=== PATIENT | male | born 1950 | race Two or more races ===

== ENCOUNTER 2021-08-13 22:30 | Inpatient (IN) | payer MEDICARE, OTHER ==
[~2021-08-13] VITALS: Ht 172.7 cm; Wt 74.8 kg
--- NOTE | 2021-08-13 22:35 | NUR ---
RT NOTE TRACH PT BROUGHT IN FOR DESATURATION AND HYPOTENSION FROM DETENTION. PLACED ON VENT W GIVEN SETTINGS OF AC 10 500 50% +0 PER FIRE. BILATERAL BS NOTED. MANAGER ACTIVITIES DONE. VENT PLUGGED INTO RED OUTLET W ALARMS SET AND AUDIBLE. Addendum: 08/13/21 at 2323 by BRIAN STEINER RT Amended: Links added.
--- NOTE | 2021-08-13 22:58 | NUR ---
PBIBRAFROM ASSISTED LIVING C/O O2 SAT AT 91%, AND LOW BP .PT IS TRACH TO VENT UNABLE TO COMMUNICATE, PT IS ON MONITOR.
[2021-08-13] MEDS ORDERED: IV NS 0.9% 2,000 ML IV ONE (23:30)
[2021-08-13 23:51] LABS: ABG BASE EXCESS 0.1 mmol/L; ABG PCO2 33.7 mmHg (35.0-45.0); ABG PO2 102.4 mmHg (75.0-100.0); COHb 0.2 % (0.5-1.5); MetHb 0.5 % (0.0-1.5); O2Hb 96.8 % (94.0-97.0); PEEP,BG 0 cm H2O; SITE, ABG Left Radial; VENT MODE, BG AC 10 500 50% +0; VT, ABG 500 mL
[2021-08-14] MEDS ORDERED: VANCOMYCIN 1 GM in IV D5W 250 ML IV ONE (00:30)
[2021-08-14] MEDS ORDERED: CEFEPIME 1 GM in IV D5W 50 ML IV ONE (00:30)
[2021-08-14] MEDS ORDERED: CEFEPIME 1 GM VIAL ONE (01:00)
[2021-08-14] MEDS ORDERED: VANCOMYCIN 1 GM VIAL ONE (01:01)
[2021-08-14 03:24] LABS: HEMATOCRIT 35 % (39-51); HEMOGLOBIN 11.5 g/dL (13.5-17.5); MEAN CORPUSCULAR HGB CONC 33 g/dl (31.0-36.0); MEAN CORPUSCULAR VOLUME 91 fL (80-96); PLATELET COUNT (AUTO) 313 K/uL (150-450); RED BLOOD CELL COUNT(AUTO) 3.87 MIL/uL (4.5-6.0); WHITE BLOOD COUNT (AUTO) 16.9 K/uL (4.3-11.0)
[2021-08-14 03:25] LABS: BASOPHILS % (AUTO) 0.3 % (0.0-2.0); LYMPHOCYTES % (AUTO) 5.8 % (20.0-44.0); MONOCYTES # (AUTO) 1.6 K/uL (0.1-1.30); MONOCYTES % (AUTO) 9.5 % (2.0-12.0); NEUTROPHILS # (AUTO) 14.1 K/uL (1.8-8.9); NEUTROPHILS % (AUTO) 83.4 % (43.0-81.0)
[2021-08-14] MEDS ORDERED: LORAZEPAM INJ 2 MG/ML VIAL ONE (03:48)
[2021-08-14 03:58] LABS: ALANINE AMINOTRANSFERASE 54 U/L (12-78); ALKALINE PHOSPHATASE 63 U/L (46-116); ASPARTATE AMINOTRANSFERASE 38 U/L (15-37); BILIRUBIN,DIRECT 0.2 mg/dL (0.0-0.2); BILIRUBIN,TOTAL 0.4 mg/dL (0.2-1.0); CALCIUM, SERUM 9.3 mg/dL (8.5-10.1); CARBON DIOXIDE 23 mmol/L (21-32); CHLORIDE 98 mmol/L (98-107); CREATININE 1.3 mg/dL (0.6-1.3); GLUCOSE 143 mg/dL (74-106); POTASSIUM 6.1 mmol/L (3.5-5.1); SODIUM SERUM 131 mmol/L (136-145); UREA NITROGEN, BLOOD 34 mg/dL (7-18)
[2021-08-14 03:59] LABS: TOTAL PROTEIN, SERUM 7.6 g/dL (6.4-8.2)
[2021-08-14] MEDS ORDERED: LORAZEPAM INJ 2 MG/ML VIAL IV ONE (04:00)
[2021-08-14 04:21] LABS: BILIRUBIN,URINE NEGATIVE (NEGATIVE); COLOR,URINE YELLOW (YELLOW); LEUKOCYTE ESTERASE ,URINE NEGATIVE (NEGATIVE); NITRITE, URINE NEGATIVE (NEGATIVE); PROTEIN,URINE 1+ mg/dl (NEGATIVE); UGLUCOSE NEGATIVE (NEGATIVE); UROBILINOGEN,URINE 0.2 EU/dL (0.2)
[2021-08-14 04:22] LABS: BACTERIA,URINE None seen /HPF (None Seen); RBC,URINE 21-50 /HPF (0-2); SQUAMOUS EPITHELIAL CELL,UR Few /HPF (None Seen)
--- NOTE | 2021-08-14 05:17 | NUR ---
[facility]SA SWAB COLLECTED AND SENT TO LAB. PATIENT'S BELONGINGS LIST DONE.
[2021-08-14] MEDS ORDERED: SODIUM POLYSTYRENE SULFONATE 15 G/60 ML BOTTLE GT ONE (05:30)
[2021-08-14] MEDS ORDERED: FUROSEMIDE 40 MG/4 ML VIAL IV ONE (05:30)
[2021-08-14] MEDS ORDERED: CALCIUM CHLORIDE 1,000 MG/10 ML DISP.SYRIN IV ONE (05:30)
[2021-08-14] MEDS ORDERED: SODIUM POLYSTYRENE SULFONATE 15 G/60 ML BOTTLE ONE (06:16)
[2021-08-14] MEDS ORDERED: FUROSEMIDE 40 MG/4 ML VIAL ONE (06:16)
[2021-08-14] MEDS ORDERED: CALCIUM CHLORIDE 1,000 MG/10 ML DISP.SYRIN ONE (06:17)
[2021-08-14] MEDS ORDERED: Z GUARD REMEDY 2 OZ OINT TP PRN (07:00)
[2021-08-14] MEDS ORDERED: MAGNESIUM HYDROXIDE 30 ML UDC PO PRN (07:00)
[2021-08-14] MEDS ORDERED: ONDANSETRON HCL/PF 4 MG/2 ML VIAL IVP PRN (07:00)
[2021-08-14] MEDS ORDERED: ZOLPIDEM TARTRATE 5 MG TABLET PO PRN (07:00)
[2021-08-14] MEDS ORDERED: MAG HYDROX/AL HYDROX/SIMETH 30 ML UDC PO PRN (07:00)
[2021-08-14] MEDS ORDERED: PANTOPRAZOLE 40 MG TABLET.DR PO SCH (07:30)
[2021-08-14] MEDS: IV NS 0.9% 1,000 ML IV PRN (07:50)
[2021-08-14] MEDS ORDERED: IV NS 0.9% 500 ML BAG IV ONE (08:00)
--- NOTE | 2021-08-14 08:03 | NUR ---
room 105
--- NOTE | 2021-08-14 10:02 | NUR ---
GAVE BEDSIDE REPORT TO NEMESIO LEPE
--- NOTE | 2021-08-14 10:15 | NUR ---
INNOVATION ANALYST NOTES RECEIVED PT FROM ER. RT ASSISTED WITH TRANSFER AND SETTING UP THE VENTILATOR. PT HAS A ANNIKA MIDLINE FLUSHED, PATENT AND INTACT, G-TUBE AND AN ORDER FOR NS @75ML/HR. AWAITING IV PUMP, NONE AVAILABLE ON THE UNIT. SKIN CHECKED, PT HAS A SCAR ON THE R TEMPORAL/PARIETAL REGION, SCAB ABOVE RIGHT EYEBROW, PERINEAL SWELLING/REDNESS AND SCABBING ON RIGHT FOOT. PT HAS A POOLE DRAINING YELLOW CLEAR URINE, AND BOWEL MOVEMENT X1. PT CLEANED, LINEN CHANGE, SAFETY MEASURES IN PLACE WITH BED IN LOWEST LOCKED POSITION, CALL LIGHT WITHIN REACH.
--- NOTE | 2021-08-14 10:54 | NUR ---
GAS DISTRIBUTION AND EMERGENCY CLERK NOTES PHOTO MASK INSPECTOR NOTIFIED THAT PT IS SINUS TACH 104 WITH BBB NOTIFIED. PT ALSO IS AGITATED, MADE AWARE.
[2021-08-14 12:00] VITALS: BP 129/58
[2021-08-14] MEDS: HYDROCODONE/APAP 5/325MG TABLET PO PRN ×2 (12:03→16:22)
[2021-08-14] MEDS: CEFEPIME 2 GM in IV D5W 100 ML IV SCH ×2 (12:51→22:41)
[2021-08-14] MEDS: VANCOMYCIN HCL 0.75 GM in IV D5W 250 ML IV SCH (13:49)
[2021-08-14 16:00] VITALS: BP 141/73
[2021-08-14 17:13] LABS: CALCIUM, SERUM 8.7 mg/dL (8.5-10.1); CREATININE 1.1 mg/dL (0.6-1.3); POTASSIUM 4.1 mmol/L (3.5-5.1)
[2021-08-14] MEDS: LORAZEPAM INJ 2 MG/ML VIAL IV PRN (18:25)
--- NOTE | 2021-08-14 18:52 | NUR ---
ARMORED CAR GUARD AND DRIVER CLOSING NOTES PT RESTING IN SEMI-LU POSITION WITH HOB ELEVATED, ON VENTILATOR WITH SETTINGS AC 10, TV 500, FIO2 50, AND PEEP 0, O2 SATURATION 100%. PT KEPT CLEAN AND DRY. MEDICATED WITH PRN ATIVAN @ 1830 DUE TO AGITATION/CONFUSION. PT HAS BILATERAL SOFT WRIST RESTRAINTS, SKIN CHECKS PERFORMED Q2H. PT HAS A POOLE WITH 400ML ON SHIFT WITH 3 BOWEL MOVEMENTS. PT HAS NS RUNNING @75ML/HR THROUGH ANNIKA MIDLINE, INFUSING WELL. SAFETY MEASURES IN PLACE WITH BED IN LOWEST LOCKED POSITION, CALL LIGHT WITH IN REACH AND BED ALARM ON. WILL ENDORSE TO NEXT SHIFT FOR CONTINUITY OF CARE.
[2021-08-14 20:00] VITALS: BP 152/64
[2021-08-15] VITALS (42 sets, daily range): BP systolic 63–162; BP diastolic 41–82
[2021-08-15] MEDS: VANCOMYCIN HCL 0.75 GM in IV D5W 250 ML IV SCH ×2 (00:11→12:32)
[2021-08-15] MEDS: LORAZEPAM INJ 2 MG/ML VIAL IV PRN ×4 (01:35→14:42)
[2021-08-15] MEDS: IV NS 0.9% 1,000 ML IV PRN ×3 (05:03→23:16)
[2021-08-15 06:40] LABS: BASOPHILS # (AUTO) 0.1 K/uL (0.0-0.2); BASOPHILS % (AUTO) 0.5 % (0.0-2.0); EOSINOPHILS % (AUTO) 4.3 % (0.0-6.0); HEMATOCRIT 33 % (39-51); HEMOGLOBIN 10.9 g/dL (13.5-17.5); LYMPHOCYTES # (AUTO) 0.7 K/uL (0.8-4.8); LYMPHOCYTES % (AUTO) 6.1 % (20.0-44.0); MEAN CORPUSCULAR HGB CONC 33 g/dl (31.0-36.0); MEAN CORPUSCULAR VOLUME 91 fL (80-96); MONOCYTES % (AUTO) 9.2 % (2.0-12.0); NEUTROPHILS # (AUTO) 8.9 K/uL (1.8-8.9); NEUTROPHILS % (AUTO) 79.9 % (43.0-81.0); PLATELET COUNT (AUTO) 227 K/uL (150-450); RED BLOOD CELL COUNT(AUTO) 3.62 MIL/uL (4.5-6.0); WHITE BLOOD COUNT (AUTO) 11.1 K/uL (4.3-11.0)
--- NOTE | 2021-08-15 07:00 | NUR ---
RN CLOSING NOTES, PT ON VENTILATOR WITH SETTINGS tolerating setting well, O2 SATURATION 98-100%,NO SIGNIFICANT CHANGE IN CONDITION DURING NIGHT, ON BILATERAL SOFT WRIST RESTRAINTS, NO CIRCULATION COMPROMISED, ATIVAN GIVEN ONCE DURING NIGHT FOR AGITATION, ALL SAFETY MEASURES IN PLACE WITH BED IN LOWEST LOCKED POSITION, CALL LIGHT WITH IN REACH AND BED ALARM ON. WILL ENDORSE CONTINUITY OF CARE TO ONCOMING NURSE..
[2021-08-15 07:17] LABS: CALCIUM, SERUM 8.9 mg/dL (8.5-10.1); CREATININE 0.7 mg/dL (0.6-1.3); MAGNESIUM 1.8 mg/dL (1.8-2.4); PHOSPHORUS 3.7 mg/dL (2.5-4.9); POTASSIUM 3.7 mmol/L (3.5-5.1)
[2021-08-15] MEDS: ACETAMINOPHEN 325 MG TABLET PO PRN ×3 (07:39→18:15)
[2021-08-15] MEDS: PANTOPRAZOLE 40 MG/PACK PACK GT SCH ×3 (08:20→17:56)
[2021-08-15] MEDS ORDERED: ALBU2.5V13 IH (08:21)
[2021-08-15] MEDS ORDERED: ONDA4TAB5 GT (08:21)
[2021-08-15] MEDS ORDERED: INSU100V39 SQ (08:21)
[2021-08-15] MEDS ORDERED: ACET-868 GT (08:21)
[2021-08-15] MEDS ORDERED: CARV12.52 GT (08:21)
[2021-08-15] MEDS ORDERED: IPRA0.2S9 IH (08:21)
[2021-08-15] MEDS ORDERED: DOCU50LI GT (08:21)
[2021-08-15] MEDS ORDERED: MULT-24 GT (08:21)
[2021-08-15] MEDS ORDERED: PANT40SU2 GT (08:21)
[2021-08-15] MEDS ORDERED: LISI20TA30 GT (08:21)
[2021-08-15] MEDS ORDERED: FURO-145 GT (08:21)
[2021-08-15] MEDS ORDERED: ATOR40TA GT (08:21)
[2021-08-15] MEDS ORDERED: RIVA10TA GT (08:21)
[2021-08-15] MEDS ORDERED: ASCO-352 GT (08:21)
[2021-08-15] MEDS ORDERED: NUT.237L30 GT (08:21)
[2021-08-15] MEDS ORDERED: LACT1CAP61 GT (08:21)
[2021-08-15] MEDS ORDERED: DOXA2TAB2 GT (08:21)
[2021-08-15] MEDS ORDERED: LACT10SO3 GT (08:21)
[2021-08-15] MEDS ORDERED: GLUC1KIT IM (08:21)
[2021-08-15] MEDS ORDERED: LABE300T2 GT (08:21)
--- NOTE | 2021-08-15 08:30 | NUR ---
DEDICATED DRIVER OPENING NOTE RECEIVED REPORT FROM PM NURSE.PATIENT IN BED SINUS TACHY 120-140'S.ELEVATED TEMP. MADE AWARE.ON COOLING MEASURES.WILL CONTINUE TO MONITOR.SAFETY NAD ASPIRATION MEASURES IN PLACE.ON RESTRAINS.NON VERBAL.WILL CONTINUE TO MONITOR.
--- NOTE | 2021-08-15 09:32 | NUR ---
PATIENT HR 160'S .RR IS 40'S . MADE AWARE.GOT NEW ORDER FOR ATIVAN 2MG Q4H PRN.WILL CONTINUE TO MONITOR.TEMP 100.4
[2021-08-15] MEDS: CARVEDILOL 12.5 MG TABLET GT SCH ×2 (11:12→23:29)
[2021-08-15] MEDS: CEFEPIME 2 GM in IV D5W 100 ML IV SCH (11:29)
--- NOTE | 2021-08-15 11:42 | NUR ---
protonix did not administered.given in am.
[2021-08-15] MEDS: IPRATROPIUM NEB FS 0.5 MG/2.5 ML AMPUL.NEB IH SCH ×3 (12:26→20:21)
[2021-08-15] MEDS: ALBUTEROL FS 2.5 MG/0.5 ML VIAL.NEB IH SCH ×3 (12:27→20:21)
[2021-08-15] MEDS ORDERED: IBUPROFEN SUSP 100 MG/5 ML UDC PO PRN (12:30)
--- NOTE | 2021-08-15 12:30 | NUR ---
PATIENT NOTED WITH TEMP RECTAL 106.4F. NOTIFIED,GOT NEW ORDERS.1230 TEMP 105.5.STILL TACHY.MADE AWARE THAT PATIENT IS TOO UNSTABLE TO TRANSFER FOR CT SCAN ORDERED BY ID.PATIENT IS STILL TACHY.STAT EKG DONE.REPORTED TO .GOT NEW ORDER TO TRANSFER TO ICU.
[2021-08-15] MEDS: LACTULOSE 10 G/15 ML UDC (PYXIS) GT SCH ×2 (12:34→21:00)
--- NOTE | 2021-08-15 13:00 | NUR ---
PATIENT TRANSFERRED TO ICU FOR CONTINUE MONITORING,HR IN 120-130'S.TEMP 102.9.IV FLUSHING.POOLE CATH DRAINING CLEAR YELLOW URINE.HYGIENE CARE DONE. REPORT GIVEN TO ÁNGELA LEPE.
--- NOTE | 2021-08-15 13:00 | NUR ---
Patient received from room 105, beside report given. patient tachycardic of 120's, rectal temp of 102.8, 88/50 bp. Patient with cooling blanket and cooling measures. Patient will be monitored. Addendum: 08/15/21 at 1949 by NAOMIE ANGULO RN Patient did not follow commands and did not open eyes.
--- NOTE | 2021-08-15 13:40 | NUR ---
Patient noted with bp of 86/56 manual, pulse 114, temp trending down to 101.4 from 102.8 when admitted to ICU.Received orders for 500 ML OF N/S BOLUS.
--- NOTE | 2021-08-15 13:41 | NUR ---
PER MD IF PATIENT'S BP BELOW 90 AFTER BOLUS TO START LEVO DRIP.ORDERS NOTED FOR STANDING ORDERS.
--- NOTE | 2021-08-15 13:50 | NUR ---
NORMAL SALINE BOLUS STARTED
[2021-08-15] MEDS ORDERED: NOREPINEPHRINE 8 MG in IV NS 0.9% 242 ML IV PRN (15:00)
[2021-08-15] MEDS: DOCUSATE SODIUM LIQ 100 MG/10 ML UDC GT SCH (15:37)
--- NOTE | 2021-08-15 15:55 | NUR ---
MD DONALDSON MADE AWARE REGARDING PATIENT BEING STARTED ON LEVO DUE TO MANUAL BP OF 85/40 AND PATIENT'S CORE TEMP OF 103 DEGREE BUT UNABLE TO GIVE TYLENOL BEING Q6H AND MOTRIN BEING Q8 AND TOO SOON TO GIVE. PER MD TO INFORM INFECTIOUS DISEASE. ID TEAM NOTIFIED AND PER ID TEAM TO CHANGE CEFEPIME TO MERREM 500 MG Q8H AND TO REPEAT BLOOD CULTURES AND TO ADD MYCAMIN 100 MG IV DAILY. NEW ORDERS FOR CT OF HEAD, ABDOMEN AND PLEVIS WITHOUT CONTRAST. OUTREACH LIBRARIAN MADE AWARE THAT PATIENT'S VITALS NOT STABLE AND RECENTLY STARTED ON LEVO, PER OUTREACH LIBRARIAN TO WAIT UNTIL PATIENT STABLE FOR CT. ALL ORDERS NOTED AND CARRIED OUT.
[2021-08-15] MEDS ORDERED: RIVAROXABAN 10 MG TABLET GT SCH (17:00)
[2021-08-15] MEDS: MICAFUNGIN SODIUM 100 MG in IV NS 0.9% 100 ML IV SCH (17:35)
--- NOTE | 2021-08-15 18:00 | NUR ---
mycamin given 1st dose
--- NOTE | 2021-08-15 18:58 | NUR ---
blood cultures drawn x 2
--- NOTE | 2021-08-15 19:37 | NUR ---
HAND METHOD LASTING MACHINE OPERATOR CLOSING NOTES Patient is on mechanical vent setting, 02 sat of 99 %. Patient currently trending down with temp of 100 degrees real time. Non medical nursing interventions provided such as cooling measures. ANNIKA midline running NS at 100 cc/hour and levo drip running at 0.06 mcg/kg/min.HOB kept elevated. Patient noted wiht urine output of 400 cc throughout morning shift and noted with one large loose bm with credit underwriter. Endorsed to next shift for CT of abdomen and pelvis along with ct of head without contrast if patient stabilizes. Endorsed to next shift for COY.
[2021-08-15] MEDS: MEROPENEM 500 MG in IV NS 0.9% 50 ML IV SCH (23:14)
--- NOTE | 2021-08-15 23:25 | NUR ---
BUILDING STONECUTTER:VERIFIED WITH DR. CLEMONS IF BP MEDS ARE NEEDED TO BE HELD AT THIS TIME PT IS STILL ON LEVOPHED DRIP. WT ORDER TO HOLD BP MEDS FOR TONIGHT. NOTED AND CARRIED OUT. PT CONTINUES TO HAVE FEVER. ST ON FURNITURE SALES CONSULTANT. WILL ADMINISTER ACETAMINOPHEN ONCE DUE. CONTINUE ON COOLING MEASURES. TOLERATING VENT SETTINGS ORDERED. BILAT. SOFT WRIST RESTRAINTS IN PLACE FOR EPISODES OF TRYING TO PULL TUBINGS. SKIN AND CIRCULATION WNL. CONTINUE ON NS AT 100ML/HR. NO S/S OF IV INFILTRATION. POOLE CATHETER INTACT DRAINING YELLOW URINE TO GRAVITY. HOB ABOVE 35 DEGREES. BED IN LOWEST POSITION AND LOCKED. BED ALARM ON. SIDE RAILS UP X2. CALL LIGHT WITHIN REACH. WILL CONTINUE TO MONITOR.
[2021-08-15] MEDS: LISINOPRIL (20MG) 20 MG TABLET GT SCH (23:29)
[2021-08-15] MEDS: DOXAZOSIN MESYLATE (1 MG) 1 MG TABLET GT SCH (23:30)
[2021-08-16] VITALS (47 sets, daily range): BP systolic 89–157; BP diastolic 51–91
[2021-08-16] MEDS: ALBUTEROL FS 2.5 MG/0.5 ML VIAL.NEB IH SCH ×7 (00:05→23:38)
[2021-08-16] MEDS: IPRATROPIUM NEB FS 0.5 MG/2.5 ML AMPUL.NEB IH SCH ×7 (00:05→23:38)
[2021-08-16] MEDS: VANCOMYCIN HCL 0.75 GM in IV D5W 250 ML IV SCH ×3 (00:19→23:50)
[2021-08-16] MEDS: ACETAMINOPHEN 325 MG TABLET PO PRN ×3 (00:24→18:03)
[2021-08-16] MEDS: LACTULOSE 10 G/15 ML UDC (PYXIS) GT SCH ×2 (05:00→11:31)
[2021-08-16 05:03] LABS: CALCIUM, SERUM 8.3 mg/dL (8.5-10.1); CREATININE 1.1 mg/dL (0.6-1.3); POTASSIUM 3.7 mmol/L (3.5-5.1)
--- NOTE | 2021-08-16 06:30 | NUR ---
OFFICE MACHINE INSPECTOR: PT IS MORE ALERT AND AWAKE AT THIS TIME. ABLE TO OPEN EYES AND FOLLOW SIMPLE COMMANDS. STILL HAVING DIARRHEA. GOOD PERICARE RENDERED. STILL OFF VASOPRESSORS. SAFETY PRECAUTION NOTED AT ALL TIMES.
[2021-08-16] MEDS: MEROPENEM 500 MG in IV NS 0.9% 50 ML IV SCH ×3 (06:49→21:01)
--- NOTE | 2021-08-16 07:00 | NUR ---
WARP CHANGER: ENDORSED TO DAY SHIFT RN FOR PENDING CT HEAD, ABDOMEN AND PELVIS.
--- NOTE | 2021-08-16 07:25 | NUR ---
ICU/RN PT IS TRACH ON THE VENT ,AC MODE.SAT O2-100%,V/S STABLE,AFEBRILE.OFF LEVOPHED DRIP.G-TUBE CLAMPED.PT IS NPO WAITING FOR CT OF THE HEAD AND ABDOMEN.F/C DRAINING WITH YELLOW URINE.BILATERAL SOFT WRIST RESTRAINS ON .PT IS AGITATED.NOT FOLLOWS COMMAND.RIGHT FOOT COVERED WITH DRESSING.PT HAS LIQUID STOOL. AM CARE PROVIDED.LABS REVIEW. NOTIFIED.
--- NOTE | 2021-08-16 07:43 | NUR ---
WOUND CARE CONSULT: PT PRESENTS WITH SCARRING/ESCHAR TO RT SIDE OF HEAD, SCAR ABOVE RT EYEBROW, SACRAL SCARRING WITH INTACT DEEP TISSUE INJURY AND SWELLING WITH ESCHAR TO RT FOOT, ALL PRESENT ON ADMISSION. SURGICAL AND DPM CONSULTS TO BE CALLED TO DR ARACELI MORGAN AND DR MIR THIS AM. RECOMMENDATIONS MADE FOR SKIN PROTECTION. DISCUSSED WITH NURSING STAFF. PT NOTED TO BE MOVING HIS LEGS IN BED. IN AGREEMENT WITH PLAN OF CARE. Addendum: 08/16/21 at [facility] by BRAD TOTH WNDNU Amended: Links added. Addendum: 08/16/21 at [facility] by BRAD TOTH WNDNU PT IS ON [facility] BED.
[2021-08-16 08:20] LABS: ALBUMIN 2.3 g/dL (3.4-5.0); BILIRUBIN,TOTAL 0.5 mg/dL (0.2-1.0); CALCIUM, SERUM 8.1 mg/dL (8.5-10.1); CREATININE 1.2 mg/dL (0.6-1.3); MAGNESIUM 1.7 mg/dL (1.8-2.4); PHOSPHORUS 3.5 mg/dL (2.5-4.9); POTASSIUM 3.9 mmol/L (3.5-5.1); TOTAL PROTEIN, SERUM 6.3 g/dL (6.4-8.2)
[2021-08-16] MEDS ORDERED: IV NS 0.9% 1,000 ML IV ONE (08:30)
[2021-08-16] MEDS: LORAZEPAM INJ 2 MG/ML VIAL IV PRN ×2 (08:34→17:10)
[2021-08-16] MEDS: ASCORBIC ACID 500 MG TABLET GT SCH (08:35)
[2021-08-16] MEDS: MULTIVITAMINS,THERAGRAN 1 UDTAB TABLET GT SCH (08:36)
[2021-08-16] MEDS: CARVEDILOL 12.5 MG TABLET GT SCH ×2 (08:36→21:04)
[2021-08-16] MEDS: LISINOPRIL (20MG) 20 MG TABLET GT SCH ×2 (08:36→21:03)
[2021-08-16] MEDS: PANTOPRAZOLE 40 MG/PACK PACK GT SCH ×3 (08:36→17:50)
[2021-08-16] MEDS: DOCUSATE SODIUM LIQ 100 MG/10 ML UDC GT SCH ×2 (08:37→17:00)
--- NOTE | 2021-08-16 09:05 | NUR ---
ICU/RN DUE MEDS ARE GIVEN ORDERED.1 L NS BOLUS GIVEN ORDERED.
--- NOTE | 2021-08-16 11:00 | NUR ---
ICU/RN PT IS BACK FROM CT SCAN.
[2021-08-16] MEDS: IV NS 0.9% 1,000 ML IV PRN ×2 (11:09→20:47)
[2021-08-16] MEDS: Magnesium 1GM/D5W 100ML PREMIX 100 ML IV SCH ×2 (11:13→11:52)
[2021-08-16] MEDS ORDERED: DEXTROSE 50%-WATER 50 ML DISP.SYRIN IV PRN (12:00)
[2021-08-16] MEDS: BLOOD SUGAR DIAGNOSTIC 1 EACH STRIP IN SCH ×3 (12:04→23:50)
--- NOTE | 2021-08-16 14:00 | NUR ---
ICU/RN CT OF THE HEAD SHOWING HEAD BLEEDING.MD NOTIFIED.FAMILY NOTIFIED.NEW ORDERS RECEIVED.
[2021-08-16] MEDS: METRONIDAZOLE 500 MG TABLET PO SCH ×2 (14:22→21:03)
--- NOTE | 2021-08-16 16:00 | NUR ---
ICU/RN PT IS BACK FROM SECOND CT OF THE HEAD WAITING FOR RESULT.PM CARE PROVIDED. ORDERED.PT HAS MULTIPLY LIQUID STOOLS.MD NOTIFIED.STOOL FOR C-DIFF SEND TO THE LAB.RECTAL TUBE INSERTED.WOUND DRESSING DONE ORDERED.SUCTION PROVIDED,G-TUBE FEEDING STARTED ORDERED.
[2021-08-16] MEDS: MICAFUNGIN SODIUM 100 MG in IV NS 0.9% 100 ML IV SCH (17:50)
--- NOTE | 2021-08-16 18:00 | NUR ---
ICU/RN DUE MEDS ARE GIVEN ORDERED.ALICIA CARE DONE .CT OF THE HEAD RESULT STILL PENDING.
[2021-08-16] MEDS: GLUCERNA 1.2 1,000 ML BOTTLE GT PRN (18:03)
--- NOTE | 2021-08-16 19:30 | NUR ---
ICU NOTES Received patient awake non verbal non interactive confused and restless.Patient with trach to mechanical vent with prescribed settings well tolerated spo2 98%- 100%.No acute respiratory distress noted.SR/ST 90'S-100'S.Normotensive.GT feeding in progress.Aspiration maintained with HOB elevated.No residual noted. FC to gravity.Incontinent of liquid stools patient pulled out Flexi-seal.Kept clean and dry.Flexi seal reapplied.IVF infusing via ANNIKA ML site intact.Turned and repositioned. Continue monitoring.
[2021-08-16] MEDS: DOXAZOSIN MESYLATE (1 MG) 1 MG TABLET GT SCH (21:05)
[2021-08-17] VITALS (20 sets, daily range): BP systolic 136–178; BP diastolic 61–100
[2021-08-17] MEDS ORDERED: VANCOMYCIN 0.75 GM in IV D5W 250 ML IV SCH
[2021-08-17] MEDS: ALBUTEROL FS 2.5 MG/0.5 ML VIAL.NEB IH SCH ×6 (03:47→23:19)
[2021-08-17] MEDS: IPRATROPIUM NEB FS 0.5 MG/2.5 ML AMPUL.NEB IH SCH ×6 (03:47→23:19)
[2021-08-17 04:33] LABS: BASOPHILS # (AUTO) 0.1 K/uL (0.0-0.2); BASOPHILS % (AUTO) 0.9 % (0.0-2.0); EOSINOPHILS % (AUTO) 1.9 % (0.0-6.0); HEMATOCRIT 27 % (39-51); HEMOGLOBIN 9.2 g/dL (13.5-17.5); LYMPHOCYTES # (AUTO) 0.7 K/uL (0.8-4.8); LYMPHOCYTES % (AUTO) 10.5 % (20.0-44.0); MEAN CORPUSCULAR HGB CONC 34 g/dl (31.0-36.0); MEAN CORPUSCULAR VOLUME 100 fL (80-96); MONOCYTES % (AUTO) 15.2 % (2.0-12.0); NEUTROPHILS # (AUTO) 4.8 K/uL (1.8-8.9); NEUTROPHILS % (AUTO) 71.5 % (43.0-81.0); PLATELET COUNT (AUTO) 209 K/uL (150-450); RED BLOOD CELL COUNT(AUTO) 2.72 MIL/uL (4.5-6.0); WHITE BLOOD COUNT (AUTO) 6.7 K/uL (4.3-11.0)
[2021-08-17] MEDS: METRONIDAZOLE 500 MG TABLET PO SCH ×3 (04:45→21:02)
[2021-08-17] MEDS: MEROPENEM 500 MG in IV NS 0.9% 50 ML IV SCH ×3 (04:46→20:37)
[2021-08-17 04:47] LABS: CALCIUM, SERUM 7.5 mg/dL (8.5-10.1); CREATININE 0.7 mg/dL (0.6-1.3); PHOSPHORUS 2.6 mg/dL (2.5-4.9); POTASSIUM 3.7 mmol/L (3.5-5.1)
--- NOTE | 2021-08-17 06:00 | NUR ---
ICU NOTES. Patient resting.VS remains stable.Tolerating vent settings.Tolerating GT feeding increase rate rate at intervals now infusing 40mls/hr with goal rate of 65 mls/hr.No residual noted.HOB elevated.AM care done.Turned and repositioned.Blood sugar monitored its wnl.Due medications administered.Kept comfortable and safe.No acute distress noted all throughout the shift.
[2021-08-17] MEDS: BLOOD SUGAR DIAGNOSTIC 1 EACH STRIP IN SCH ×3 (06:04→17:52)
[2021-08-17] MEDS: IV NS 0.9% 1,000 ML IV PRN (06:07)
--- NOTE | 2021-08-17 07:25 | NUR ---
RN NOTES PT FOUND SLEEPING SEMI LU'S POSITION DISPLAYING NO S/S OF DISTRESS, FLACC = 0 AND BILATERAL RISE AND FALL OF THE CHEST OBSERVED. TRACH DRESSING IS CLEAN AND DEVOID OF FLUID. RESIDUAL IS APPROXIMATELY 35 ML. BILATERAL SOFT WRIST RESTRAINTS APPLIED, PULSES PALPATED AND CAP REFILL < 3 SECONDS BILATERALLY. POOLE CATH BELOW PATIENT DRAINING BY GRAVITY. RECTAL TUBE BELOW PATIENT DRAINING BY GRAVITY. L UA MIDLINE PATIENT AND INTACT. VSS, RN WILL MONITOR AND TREAT THROUGHOUT SHIFT. SAFETY MEASURES IN PLACE, BED LOCKED AND IN LOWEST POSITION, SIDE RAILS UPX2, CALL LIGHT WITHIN REACH, BED ALARM ARMED.
[2021-08-17] MEDS: DOCUSATE SODIUM LIQ 100 MG/10 ML UDC GT SCH ×2 (08:49→17:00)
[2021-08-17] MEDS: ASCORBIC ACID 500 MG TABLET GT SCH (08:49)
[2021-08-17] MEDS: CARVEDILOL 12.5 MG TABLET GT SCH ×2 (08:49→21:02)
[2021-08-17] MEDS: MULTIVITAMINS,THERAGRAN 1 UDTAB TABLET GT SCH (08:49)
[2021-08-17] MEDS: PANTOPRAZOLE 40 MG/PACK PACK GT SCH ×2 (08:50→17:52)
[2021-08-17] MEDS: LISINOPRIL (20MG) 20 MG TABLET GT SCH ×2 (08:50→21:02)
[2021-08-17] MEDS: RIVAROXABAN 10 MG TABLET GT SCH (08:55)
[2021-08-17 08:58] LABS: IRON, SERUM 24 ug/dl (50-175); TOTAL IRON BINDING CAPACITY 61 ug/dl (250-450)
[2021-08-17 09:12] LABS: FERRITIN 805 ng/mL (8-388)
[2021-08-17] MEDS: VANCOMYCIN HCL 0.75 GM in IV D5W 250 ML IV SCH ×2 (12:00→23:56)
[2021-08-17] MEDS: IV 1/2NS 1000 ML 1,000 ML IV SCH ×2 (12:40→23:11)
--- NOTE | 2021-08-17 16:45 | NUR ---
Verification of admission letter: Per pt.'s , Ruth's request, JOSÉ completed verification of admission letter for time off work purposes. JOSÉ placed it in the pt.'s chart. Ruth stated she will pick it up tomorrow. Noted. Addendum: 08/17/21 at 1640 by OSCAR KUMAR Ruth: [phone]
[2021-08-17] MEDS: MICAFUNGIN SODIUM 100 MG in IV NS 0.9% 100 ML IV SCH (17:52)
--- NOTE | 2021-08-17 19:30 | NUR ---
RN NOTES RN TRAVELED TO [facility] AND GAVE REPORT IN PERSON TO [facility] RN. PT IS CURRENTLY SEMI FOWLERS, A&OX2-3, FLACC = 0 AND BILATERAL RISE AND FALL OBSERVED ON VENT TRACH. PT CONTINUES TO BE RESTRAINED, BILATERAL PULSES PALPATED AND CAP REFILL < 3 SECONDS. R UA MIDLINE IS INTACT, DRESSING CHANGED. POOLE CATH BELOW PATIENT DRAINING BY GRAVITY. PT PULLED OUT RECTAL TUBE AND DESTROYED ABILITY TO RE-INSERT. SBAR AND REPORT GIVEN TO VARNISH MELTER HELPER RN. PT WILL BE TRANSPORTED [facility].
--- NOTE | 2021-08-17 19:45 | NUR ---
AGRICULTURAL EXTENSION EDUCATOR NOTES RECEIVED TRANSFER FROM ICU BY BED THIS 71 YO MALE.CONFUSED.ON TRACH TO VENT PORTEX#9,AC-10,TV-500,FIO2-40%,NO PEEP,O2 SAT 99%. GT FEEDING OF GLUCERNA RE STARTED AT 60ML/HR RATE,GOAL TILL 65 IF TOLERATED.HOB ELEVATED FOR ASPIRATION PRECAUTION.WITH ANNIKA MIDLINE,NS AT 100ML/HR RATE IN PROGRESS.POOLE CATH IN PLACE DRAINING YELLOWISH OUTPUT.RIGHT FOOT WOUND WITH DRESSING INTACT AND DRY.ON BILATERAL SOFT WRIST RESTRAINT,TRYING TO PULL OUT TUBINGS AND TRACH,PER REPOT HES' RECTAL TUBE BUT HE WAS ABLE TO PULL IT OUT 3 TIMES USING HIS FOOT.ISOLATION PRECAUTION FOR C-DIFF POSITIVE.WILL CONTINUE TO MONITOR STATUS.
--- NOTE | 2021-08-17 20:05 | NUR ---
PT TRANSFERRED TO 310.
[2021-08-17] MEDS: GLUCERNA 1.2 1,000 ML BOTTLE GT PRN (20:43)
--- NOTE | 2021-08-17 21:00 | NUR ---
CIRCLE SHEAR OPERATOR NOTES ALL DUE MEDS ADMINISTERED SCHEDULED.
[2021-08-17] MEDS: DOXAZOSIN MESYLATE (1 MG) 1 MG TABLET GT SCH (22:46)
--- NOTE | 2021-08-17 23:30 | NUR ---
LEATHER DRIER NOTES REPORTED BY WEI MILLS,PATIENT PULLED HIS POOLE USING HIS FOOT.NOT SLIGHT BLEEDING ON PENILE AREA.
[2021-08-18] VITALS (8 sets, daily range): BP systolic 129–164; BP diastolic 64–93
[2021-08-18] MEDS: BLOOD SUGAR DIAGNOSTIC 1 EACH STRIP IN SCH ×4 (00:03→17:11)
--- NOTE | 2021-08-18 00:08 | NUR ---
PEST LOCATOR NOTES SR-88 ON TELE MONITOR
--- NOTE | 2021-08-18 00:08 | NUR ---
SHANK TURNER NOTES ACCU-CHECK BLOOD SUGAR 104,NO INSULIN COVERAGE,GT FEEDING IN PROGRESS.
[2021-08-18] MEDS: LORAZEPAM INJ 2 MG/ML VIAL IV PRN ×3 (00:32→17:27)
--- NOTE | 2021-08-18 00:32 | NUR ---
LITURGICAL MUSIC DIRECTOR NOTES VERY RESTLESS,ATIVAN 2MG IV GIVEN ORDERED FOR AGITATION
[2021-08-18] MEDS: ALBUTEROL FS 2.5 MG/0.5 ML VIAL.NEB IH SCH ×6 (03:30→23:06)
[2021-08-18] MEDS: IPRATROPIUM NEB FS 0.5 MG/2.5 ML AMPUL.NEB IH SCH ×6 (03:30→23:07)
[2021-08-18] MEDS: MEROPENEM 500 MG in IV NS 0.9% 50 ML IV SCH (04:52)
[2021-08-18] MEDS: METRONIDAZOLE 500 MG TABLET PO SCH ×3 (05:21→21:05)
--- NOTE | 2021-08-18 05:30 | NUR ---
VEGETABLE PACKER NOTES ACCU-CHECK BLOOD SUGAR CHECK 101,NO INSULIN COVERAGE.
--- NOTE | 2021-08-18 06:52 | NUR ---
PNEUMATIC SYSTEM CONVEYOR OPERATOR NOTES RESTING COMFORTABLY ON BED,HARJIT AND QUIET,ATIVAN IV EFFECTIVE,POOLE CATH FR # 16 INSERTED,PROCEDURE TOLERATED WELL.RECTAL TUBE STILL OUT.WILL ENDIORSE TO DAY NURSE FOR COY
[2021-08-18 07:03] LABS: BASOPHILS # (AUTO) 0.1 K/uL (0.0-0.2); BASOPHILS % (AUTO) 0.6 % (0.0-2.0); EOSINOPHILS % (AUTO) 4.5 % (0.0-6.0); HEMATOCRIT 27 % (39-51); HEMOGLOBIN 9.2 g/dL (13.5-17.5); LYMPHOCYTES # (AUTO) 0.9 K/uL (0.8-4.8); MEAN CORPUSCULAR HGB CONC 35 g/dl (31.0-36.0); MEAN CORPUSCULAR VOLUME 90 fL (80-96); MONOCYTES # (AUTO) 1.1 K/uL (0.1-1.30); MONOCYTES % (AUTO) 12.1 % (2.0-12.0); NEUTROPHILS # (AUTO) 6.8 K/uL (1.8-8.9); NEUTROPHILS % (AUTO) 72.8 % (43.0-81.0); PLATELET COUNT (AUTO) 170 K/uL (150-450); RED BLOOD CELL COUNT(AUTO) 2.97 MIL/uL (4.5-6.0); WHITE BLOOD COUNT (AUTO) 9.4 K/uL (4.3-11.0)
--- NOTE | 2021-08-18 07:22 | NUR ---
FORENSIC PSYCHIATRIST OPENING NOTE PATIENT RECEIVED ASLEEP IN BED. PATIENT IS BREATHING W/O S/S OF DISTRESS; PORTEX #9, AC 10, TV 600, FiO2 40; POOLE URINE SLIGHTLY DUSTY; SKIN IS CLEAN AND INTACT. HE HAS A ANNIKA MIDLINE 1/2 NS @100ML/HR PATENT. PATIENT WILL BE MONITORED THROUGHOUT SHIFT FOR ALL NEEDS.
[2021-08-18 07:38] LABS: CREATININE 0.8 mg/dL (0.6-1.3); MAGNESIUM 1.8 mg/dL (1.8-2.4); PHOSPHORUS 2.8 mg/dL (2.5-4.9)
[2021-08-18 07:54] LABS: POTASSIUM 2.7 mmol/L (3.5-5.1)
--- NOTE | 2021-08-18 07:59 | NUR ---
HOSPITAL ATTENDANT NOTE RECEIVED CALL FROM LAB RE: CRITICAL LAB VALUE K 2.7; NOTIFIED AND RECEIVED ORDER FOR K 40MEQ IV.
[2021-08-18] MEDS: MULTIVITAMINS,THERAGRAN 1 UDTAB TABLET GT SCH (08:39)
[2021-08-18] MEDS: DOCUSATE SODIUM LIQ 100 MG/10 ML UDC GT SCH ×2 (08:39→17:00)
[2021-08-18] MEDS: CARVEDILOL 12.5 MG TABLET GT SCH ×2 (08:40→21:05)
[2021-08-18] MEDS: POTASSIUM CL. PREMIX PERIPHER. 50 ML IV SCH ×6 (08:41→20:25)
[2021-08-18] MEDS: LISINOPRIL (20MG) 20 MG TABLET GT SCH ×2 (08:41→21:05)
[2021-08-18] MEDS: PANTOPRAZOLE 40 MG/PACK PACK GT SCH ×2 (08:41→17:10)
[2021-08-18] MEDS: ASCORBIC ACID 500 MG TABLET GT SCH (08:41)
[2021-08-18] MEDS: IV 1/2NS 1000 ML 1,000 ML IV SCH (08:45)
[2021-08-18] MEDS: PROSOURCE / PROSTAT (PYXIS) 30 ML UDC GT SCH ×3 (10:50→17:10)
--- NOTE | 2021-08-18 11:09 | NUR ---
ELECTRICAL APPRENTICE NURSE NOTE RECTAL TUBING D/C'd PER MD; GAVE ORDER TO RECHECK K AFTER 40MEQ GIVEN.
[2021-08-18] MEDS: INSULIN REGULAR, HUMAN 100 UNIT/ML 3 ML VIAL SQ PRN ×2 (12:08→17:29)
[2021-08-18] MEDS: ACETAMINOPHEN 325 MG TABLET PO PRN (12:41)
--- NOTE | 2021-08-18 12:41 | NUR ---
BIOPHYSICS TEACHER NOTE PATIENT NOTED WITH FEVER UPON ASSESSMENT IN ROOM; COOLING MEASURES FOLLOWED; TYLENOL GIVEN PER eMAR. PATIENT IS ALSO SHOWING S/S OF AGITATION AND ANXIETY. ATIVAN, PER PRN ORDER, WAS GIVEN. WILL FOLLOW-UP AND CONTINUE TO MONITOR. VITALS WNL.
[2021-08-18] MEDS: VANCOMYCIN HCL 0.75 GM in IV D5W 250 ML IV SCH (13:13)
[2021-08-18] MEDS: RIVAROXABAN 10 MG TABLET GT SCH (17:10)
--- NOTE | 2021-08-18 17:27 | NUR ---
ROBERTH NOTE ATIVAN NOT SCANNED, MEDICATION GIVEN @ 1727. WILL CONTINUE TO MONITOR Addendum: 08/18/21 at 1728 by SANG PAYNE RN BAR CODE UNSCANNABLE TRIED X 2 TIMES
[2021-08-18] MEDS ORDERED: POTASSIUM PHOSPHATE MM 5 MMOL in IV NS 0.9% 100 ML IV SCH (18:00)
[2021-08-18] MEDS: VANCOMYCIN HCL 125 MG/2.5 ML ORAL.SUSP PO SCH (18:44)
[2021-08-18] MEDS: IV 1/2NS 1000 ML 1,000 ML IV PRN (18:45)
--- NOTE | 2021-08-18 18:51 | NUR ---
KNIFE CHANGER CLOSING NOTE PATIENT ASLEEP IN BED. NO S/S OF DISTRESS. NO PAIN NOTED. PATIENT IS STABLE. SAFETY MEASURES IN PLACE: BED AT LOWEST POSITION, RAILS UP X2, BED LOCKED IN PLACE, CALL LIGHT WITHIN REACH. WILL ENDORSE TO DELI MANAGER FOR COY.
--- NOTE | 2021-08-18 19:45 | NUR ---
ACQUISITION PROFESSIONAL NOTES SR-82,RECEIVED ON BED,CALM AND QUIET THIS TIME,ON TRACH TO VENT,SETTINGS TOLERATED WELL.IVF 1/2 NS AT 100ML/HOUR IN PROGRESS,INFUSING LEFT ARM MIDLINE VIA IV PUMP.POOLE CATH PLACE DRAINS YELLOWISH OUTPUT.GT FEEDING ON GLUCERNA IN PROGRESS AT 62ML/HR RATE,ON BILATERAL SOFT WRIST RESTRAINTS FOR SAFETY,ISOLATION FOR C-DIFF POSITIVE.SUCTION MUCUS NEEDED.WILL CONTINUE TO MONITOR STATUS.
--- NOTE | 2021-08-18 20:21 | NUR ---
RT NOTE [facility] Pt shows no signs of resp distress or sob. Trach is patent and secured. Pt sx'd for thick mod amt of pale yellow secretions. Alarms are set and audible. ambu bag and emergency spare trach at bedside. Vent plugged into red outlet. Will continue to monitor closely. Addendum: 08/18/21 at 2020 by NABOR TALLEY RT Amended: Links added.
[2021-08-18] MEDS: POTASSIUM PHOSPHATE MM 5 MMOL in IV NS 0.9% 100 ML IV SCH ×2 (21:06→22:57)
--- NOTE | 2021-08-18 22:00 | NUR ---
TEASELER NOTES ACCU-CHECK BLOOD SUGAR CHECK 126,NO INSULIN COVERAGE,GT FEEDING IN PROGRESS
[2021-08-18] MEDS: DOXAZOSIN MESYLATE (1 MG) 1 MG TABLET GT SCH (22:15)
[2021-08-19] VITALS: BP 160/75
[2021-08-19] MEDS: BLOOD SUGAR DIAGNOSTIC 1 EACH STRIP IN SCH ×4 (00:05→18:15)
[2021-08-19] MEDS: VANCOMYCIN HCL 125 MG/2.5 ML ORAL.SUSP PO SCH ×5 (00:06→23:56)
[2021-08-19] MEDS: VANCOMYCIN HCL 0.75 GM in IV D5W 250 ML IV SCH ×3 (00:06→23:56)
[2021-08-19 04:00] VITALS: BP 158/53
[2021-08-19] MEDS: ALBUTEROL FS 2.5 MG/0.5 ML VIAL.NEB IH SCH ×6 (04:16→23:42)
[2021-08-19] MEDS: IPRATROPIUM NEB FS 0.5 MG/2.5 ML AMPUL.NEB IH SCH ×6 (04:16→23:42)
--- NOTE | 2021-08-19 05:00 | NUR ---
COTTON HEADER NOTES ACCU-CHECK BLOOD SUGAR CHECK 96,NO INSULIN COVERAGE,GT FEEDING IN PROGRESS.
[2021-08-19] MEDS: METRONIDAZOLE 500 MG TABLET PO SCH ×3 (05:01→20:41)
[2021-08-19] MEDS: IV 1/2NS 1000 ML 1,000 ML IV PRN ×2 (05:30→18:24)
[2021-08-19] MEDS: HYDROCODONE/APAP 5/325MG TABLET PO PRN ×2 (05:45→11:00)
--- NOTE | 2021-08-19 05:45 | NUR ---
MS RN NOTES VERY RESTLESS,MEDICATED WITH NORCO 5/325MG,1 TAB/GT GIVEN ORDERED
--- NOTE | 2021-08-19 06:53 | NUR ---
PEDIATRIC ALLERGIST NOTES CALM THIS TIME,NO DISTRESS
--- NOTE | 2021-08-19 07:40 | NUR ---
TELE/RN OPENING NOTES RECEIVED PATIENT IN BED, ON CONTACT ISOLATION DUE TO C-DIFF. ALERT AND ORIENTED X1, ABLE TO ACKNOWLEDGE RN VIA NODDING HEAD. ON MECHANICAL VENT. POOLE CATHETER IN PLACED DRAINING TO A CLEAR YELLOW URINE. ON G-TUBE FEEDING GLUCERNA @62CC/HR. IV ACCESS ON LEFT UPPER ARM MIDLINE IS INTACT WITH A RUNNING IV NS @100 ML/HR. SAFETY PRECAUTIONS IN PLACED: BED LOCKED ON LOWEST POSITION, SIDE RAILS UPX3, WILL CONTINUE TO MONITOR.
[2021-08-19 08:17] VITALS: BP 158/70
[2021-08-19 08:28] LABS: BASOPHILS % (AUTO) 0.4 % (0.0-2.0); EOSINOPHILS % (AUTO) 4.8 % (0.0-6.0); HEMATOCRIT 27 % (39-51); HEMOGLOBIN 9.3 g/dL (13.5-17.5); LYMPHOCYTES # (AUTO) 1.1 K/uL (0.8-4.8); LYMPHOCYTES % (AUTO) 12.1 % (20.0-44.0); MEAN CORPUSCULAR HGB CONC 34 g/dl (31.0-36.0); MEAN CORPUSCULAR VOLUME 89 fL (80-96); MONOCYTES # (AUTO) 1.4 K/uL (0.1-1.30); MONOCYTES % (AUTO) 14.8 % (2.0-12.0); NEUTROPHILS # (AUTO) 6.4 K/uL (1.8-8.9); NEUTROPHILS % (AUTO) 67.9 % (43.0-81.0); PLATELET COUNT (AUTO) 191 K/uL (150-450); RED BLOOD CELL COUNT(AUTO) 3.06 MIL/uL (4.5-6.0); WHITE BLOOD COUNT (AUTO) 9.4 K/uL (4.3-11.0)
[2021-08-19] MEDS: DOCUSATE SODIUM LIQ 100 MG/10 ML UDC GT SCH ×3 (09:00→17:00)
--- NOTE | 2021-08-19 09:00 | NUR ---
TELE/RN NOTES- WITHHOLD DOCUSATE WITHHELD DOCUSATE SODIUM DUE TO REPORTED LOOSE STOOLS X3 BY THE PREVIOUS SHIFT NURSE. WILL NOTIFY
[2021-08-19] MEDS: MULTIVITAMINS,THERAGRAN 1 UDTAB TABLET GT SCH (09:37)
[2021-08-19] MEDS: PROSOURCE / PROSTAT (PYXIS) 30 ML UDC GT SCH ×3 (09:37→17:12)
[2021-08-19] MEDS: ASCORBIC ACID 500 MG TABLET GT SCH (09:38)
[2021-08-19] MEDS: CARVEDILOL 12.5 MG TABLET GT SCH ×2 (09:38→20:42)
[2021-08-19] MEDS: LISINOPRIL (20MG) 20 MG TABLET GT SCH ×2 (09:39→20:41)
[2021-08-19 09:40] LABS: CALCIUM, SERUM 7.9 mg/dL (8.5-10.1); CREATININE 0.8 mg/dL (0.6-1.3); MAGNESIUM 1.7 mg/dL (1.8-2.4); PHOSPHORUS 3.3 mg/dL (2.5-4.9); POTASSIUM 3.4 mmol/L (3.5-5.1)
[2021-08-19] MEDS: PANTOPRAZOLE 40 MG/PACK PACK GT SCH ×2 (09:40→17:12)
[2021-08-19 12:23] VITALS: BP 130/89
[2021-08-19] MEDS ORDERED: POTASSIUM CHLORIDE 10 MEQ TABLET.SA PO ONE (12:30)
[2021-08-19] MEDS: LORAZEPAM INJ 2 MG/ML VIAL IV PRN (12:58)
[2021-08-19] MEDS: Magnesium 1GM/D5W 100ML PREMIX 100 ML IV SCH ×2 (15:17→17:11)
[2021-08-19 16:00] VITALS: BP 155/89
[2021-08-19] MEDS: RIVAROXABAN 10 MG TABLET GT SCH (17:13)
--- NOTE | 2021-08-19 19:35 | NUR ---
TELE/RN NOTES- PULLED OUT MIDLINE PATIENT PULLED OUT MIDLINE. WILL NOTIFY CHARGE NURSE FOR MIDLINE INSERTION.
--- NOTE | 2021-08-19 19:36 | NUR ---
LIFT SUPERVISOR CLOSING NOTE PATIENT ASLEEP IN BED. NO PAIN NOTED AT THIS TIME. SAFETY MEASURES IN PLACE: BED IN LOWEST POSITION, SIDE RAILS UP X2, BED LOCKED IN PLACE, CALL LIGHT WITHIN REACH. PATIENT PULLED OUT L UPPER ARM MIDLINE. WILL ENDORSE TO LABORER SAWMILL.
--- NOTE | 2021-08-19 19:48 | NUR ---
TELE-RN NOTES- NOTIFIED SUP CALLED AND NOTIFIED CNA INSTRUCTOR WILLIAN REGARDING PATIENT PULLED OUT HIS MIDLINE ACCESS. PATIENT IS A HARDSTICK. PER CNA INSTRUCTOR, SHE WILL CALL MIDLINE NURSE TO COME.
--- NOTE | 2021-08-19 19:54 | NUR ---
BENCH WORKER HELPER OPENING NOTES PATIENT ASLEEP IN BED. NO PAIN NOTED AT THIS TIME. SAFETY MEASURES IN PLACE: BED IN LOWEST POSITION, SIDE RAILS UP X2, BED LOCKED IN PLACE, CALL LIGHT WITHIN REACH. WHEN DOING ROUNDS NOTED PT HAD PULLED OUT MIDLINE INFORMED DAY SHIFT NURSE. NOTED PT HAS BILATERAL SOFT WRIST RESTRAINTS ADJUSTED.POOLE NOTED WITH YELLOW URINE OUTPUT. PT ON ISOLATION FOR C.DIFF. WILL CONTINUE TO MONITOR.
[2021-08-19 20:00] VITALS: BP 159/82
[2021-08-19] MEDS: DOXAZOSIN MESYLATE (1 MG) 1 MG TABLET GT SCH (22:15)
[2021-08-20] VITALS (8 sets, daily range): BP systolic 128–179; BP diastolic 56–98
[2021-08-20] MEDS: BLOOD SUGAR DIAGNOSTIC 1 EACH STRIP IN SCH ×4 (00:12→17:35)
[2021-08-20] MEDS: IPRATROPIUM NEB FS 0.5 MG/2.5 ML AMPUL.NEB IH SCH ×6 (03:24→23:33)
[2021-08-20] MEDS: ALBUTEROL FS 2.5 MG/0.5 ML VIAL.NEB IH SCH ×6 (03:24→23:33)
[2021-08-20] MEDS: METRONIDAZOLE 500 MG TABLET PO SCH ×3 (04:59→21:53)
[2021-08-20] MEDS: GLUCERNA 1.2 1,000 ML BOTTLE GT PRN (05:44)
[2021-08-20] MEDS: VANCOMYCIN HCL 125 MG/2.5 ML ORAL.SUSP PO SCH ×3 (05:44→17:33)
--- NOTE | 2021-08-20 06:48 | NUR ---
BUSINESS SOLUTIONS DIRECTOR CLOSING NOTES PATIENT ASLEEP IN BED. NO PAIN NOTED AT THIS TIME. SAFETY MEASURES IN PLACE: BED IN LOWEST POSITION, SIDE RAILS UP X2, BED LOCKED IN PLACE, CALL LIGHT WITHIN REACH. PT WITH MIDLINE TO RIGHT UPPER FOREARM 18 G RUNNING 1/2 NS @ 100 ML/HR NOTED PT HAS BILATERAL SOFT WRIST RESTRAINTS ADJUSTED.POOLE NOTED WITH YELLOW URINE OUTPUT. PT ON ISOLATION FOR C.DIFF. PT HAS BILATERAL SOFT WRIST RESTRAINTS 2 QHR CHEKS DONE. REMOVED RESTRAINTS FOR A FEW MINUTES EVERY 2 HRS KEPT PT CLEAN AND DRY AT ALL TIMES. PT NOTED WITH GT RUNNING GLUCERNA 1.2 @50ML/HR TOLERATING WELL WILL ENDORSE CARE TO DAY SHIFT NURSE.
[2021-08-20 06:52] LABS: BASOPHILS # (AUTO) 0.1 K/uL (0.0-0.2); BASOPHILS % (AUTO) 0.6 % (0.0-2.0); EOSINOPHILS % (AUTO) 5.3 % (0.0-6.0); HEMATOCRIT 28 % (39-51); HEMOGLOBIN 9.8 g/dL (13.5-17.5); LYMPHOCYTES # (AUTO) 1.4 K/uL (0.8-4.8); LYMPHOCYTES % (AUTO) 12.8 % (20.0-44.0); MEAN CORPUSCULAR HGB CONC 35 g/dl (31.0-36.0); MEAN CORPUSCULAR VOLUME 89 fL (80-96); MONOCYTES # (AUTO) 1.7 K/uL (0.1-1.30); MONOCYTES % (AUTO) 16.2 % (2.0-12.0); NEUTROPHILS # (AUTO) 6.9 K/uL (1.8-8.9); NEUTROPHILS % (AUTO) 65.1 % (43.0-81.0); PLATELET COUNT (AUTO) 219 K/uL (150-450); WHITE BLOOD COUNT (AUTO) 10.6 K/uL (4.3-11.0)
[2021-08-20 07:41] LABS: CALCIUM, SERUM 8.4 mg/dL (8.5-10.1); CREATININE 0.7 mg/dL (0.6-1.3); PHOSPHORUS 3.3 mg/dL (2.5-4.9); POTASSIUM 3.6 mmol/L (3.5-5.1)
[2021-08-20] MEDS: DOCUSATE SODIUM LIQ 100 MG/10 ML UDC GT SCH ×2 (10:26→17:35)
[2021-08-20] MEDS: ASCORBIC ACID 500 MG TABLET GT SCH (10:26)
[2021-08-20] MEDS: MULTIVITAMINS,THERAGRAN 1 UDTAB TABLET GT SCH (10:26)
[2021-08-20] MEDS: LISINOPRIL (20MG) 20 MG TABLET GT SCH ×2 (10:27→21:52)
[2021-08-20] MEDS: CARVEDILOL 12.5 MG TABLET GT SCH ×2 (10:27→21:53)
[2021-08-20] MEDS: PROSOURCE / PROSTAT (PYXIS) 30 ML UDC GT SCH ×3 (10:32→17:33)
[2021-08-20] MEDS: PANTOPRAZOLE 40 MG/PACK PACK GT SCH ×2 (10:32→17:34)
[2021-08-20] MEDS: VANCOMYCIN HCL 0.75 GM in IV D5W 250 ML IV SCH (12:31)
--- NOTE | 2021-08-20 14:23 | NUR ---
RN OPENING NOTES PATIENT IN BED, RESTING. A/O X1. NO S/S OF PAIN NOTED AT THIS TIME. PATIENT ON VENT. PPATIENT WITH MIDLINE TO RIGHT UPPER FOREARM 18 G RUNNING 1/2 NS @ 100 ML/HR NOTED PT HAS BILATERAL SOFT WRIST RESTRAINTS ADJUSTED.ZULEMA NOTED WITH YELLOW URINE OUTPUT. PT ON ISOLATION FOR C.DIFF. PT HAS BILATERAL SOFT WRIST RESTRAINTS 2 QHR CHEKS DONE. REMOVED RESTRAINTS FOR A FEW MINUTES EVERY 2 HRS KEPT PT CLEAN AND DRY AT ALL TIMES. WELL SAFETY MEASURES IN PLACE: BED IN LOWEST POSITION, SIDE RAILS UP X2, BED LOCKED IN PLACE, CALL LIGHT WITHIN REACH.WILL ENDORSE CARE TO DAY SHIFT NURSE. Addendum: 08/20/21 at 1430 by Wilma Greco RN WILL CONTINUE TO MONITOR PATIENT DURING THE DAY SHIFT.
[2021-08-20] MEDS: LORAZEPAM INJ 2 MG/ML VIAL IV PRN ×2 (14:59→22:45)
[2021-08-20] MEDS: RIVAROXABAN 10 MG TABLET GT SCH (17:34)
--- NOTE | 2021-08-20 19:03 | NUR ---
RN CLOSING NOTE PATIENT IN BED, RESTING. A/O X1. NO S/S OF PAIN NOTED AT THIS TIME. PATIENT ON VENT. PATIENT WITH MIDLINE TO RIGHT UPPER FOREARM #18G INTACT AND PATENT. PATIENT HAS BILATERAL SOFT WRIST RESTRAINTS ADJUSTED. POOLE NOTED WITH YELLOW URINE OUTPUT OF 1626ML. PATIENT ON ISOLATION FOR C.DIFF. PATIENT HAS BILATERAL SOFT WRIST RESTRAINTS 2 QHR CHEKS DONE. REMOVED RESTRAINTS FOR A FEW MINUTES EVERY 2 [address]RS[address] SAFETY MEASURES IN PLACE: BED IN LOWEST AND LOCK POSITION, SIDE RAILS UP X2, CALL LIGHT WITHIN REACH. WILL ENDORSE CARE TO INGREDIENT HANDLER NURSE.
--- NOTE | 2021-08-20 19:24 | NUR ---
HOSIERY KNITTER NOTES PATIENT IN BED, RESTING. A/O X1. NO S/S OF PAIN NOTED AT THIS TIME. PATIENT ON VENT. PATIENT WITH MIDLINE TO RIGHT UPPER FOREARM #18G INTACT AND PATENT. PATIENT HAS BILATERAL SOFT WRIST RESTRAINTS ADJUSTED. POOLE NOTED WITH YELLOW URINE OUTPUT OF 1626ML. PATIENT ON ISOLATION FOR C.DIFF. PATIENT HAS BILATERAL SOFT WRIST RESTRAINTS 2 QHR CHECKS WILL BE DONE. SAFETY MEASURES IN PLACE: BED IN LOWEST AND LOCK POSITION, SIDE RAILS UP X2, CALL LIGHT WITHIN REACH. WILL CONTINUE TO MONITOR.
[2021-08-20] MEDS: DOXAZOSIN MESYLATE (1 MG) 1 MG TABLET GT SCH (21:53)
--- NOTE | 2021-08-20 22:45 | NUR ---
RN NOTES PT RESTLESS KEEPS TRYING TO REMOVE RESTRAINTS COMFORT CARE PROVIDED PT STILL RESTLESS PRN ATIVAN GIVEN WILL CONTINUE TO MONITOR.
[2021-08-20] MEDS: IV 1/2NS 1000 ML 1,000 ML IV PRN (22:58)
[2021-08-21] VITALS: BP 138/77
[2021-08-21] MEDS: VANCOMYCIN HCL 125 MG/2.5 ML ORAL.SUSP PO SCH ×5 (00:07→23:52)
[2021-08-21] MEDS: VANCOMYCIN HCL 0.75 GM in IV D5W 250 ML IV SCH ×3 (00:07→23:52)
[2021-08-21] MEDS: BLOOD SUGAR DIAGNOSTIC 1 EACH STRIP IN SCH ×5 (00:08→23:52)
[2021-08-21] MEDS: ALBUTEROL FS 2.5 MG/0.5 ML VIAL.NEB IH SCH ×6 (03:42→23:43)
[2021-08-21] MEDS: IPRATROPIUM NEB FS 0.5 MG/2.5 ML AMPUL.NEB IH SCH ×6 (03:43→23:43)
[2021-08-21 04:00] VITALS: BP 146/69
[2021-08-21] MEDS: METRONIDAZOLE 500 MG TABLET PO SCH ×3 (04:17→21:24)
--- NOTE | 2021-08-21 04:58 | NUR ---
RT PT RECVD AWAKE ON AC VENT SETTINGS ORDERED, TRACH IS PATENT AND SECURED. NO SOB OR RESPIRATORY DISTRESS NOTED THROUGHOUT SHIFT. TRACH CARE DONE AND SUCTION WAS DONE Q2/PRN. RAMÍREZ WAS CHANGED. TX GIVEN, AND PT TOLERATED TX WELL. SPO2 >99% MAINTAINED. ALARMS ARE ON AND AUDIBLE, AMBU BAG AND SPARE TRACH AT BEDSIDE AND VENT PLUGGED INTO RED OUTLET.
--- NOTE | 2021-08-21 06:47 | NUR ---
TECHNICAL SUPPORT REPRESENTATIVE NOTES PATIENT IN BED, RESTING. A/O X1. NO S/S OF PAIN NOTED AT THIS TIME. PATIENT ON VENT. PATIENT WITH MIDLINE TO RIGHT UPPER FOREARM #18G INTACT AND PATENT. PATIENT HAS BILATERAL SOFT WRIST RESTRAINTS ADJUSTED. POOLE NOTED WITH YELLOW URINE OUTPUT PATIENT ON ISOLATION FOR C.DIFF. PATIENT HAS BILATERAL SOFT WRIST RESTRAINTS 2 QHR CHECKS WILL BE DONE. FLEXICEL INSERTED PT TOLERATED WELL.SAFETY MEASURES IN PLACE: BED IN LOWEST AND LOCK POSITION, SIDE RAILS UP X2, CALL LIGHT WITHIN REACH. WILL ENDORSE CARE TO DAY SHIFT NURSE.
[2021-08-21 06:52] LABS: BASOPHILS # (AUTO) 0.1 K/uL (0.0-0.2); HEMATOCRIT 31 % (39-51); HEMOGLOBIN 10.3 g/dL (13.5-17.5); LYMPHOCYTES # (AUTO) 1.4 K/uL (0.8-4.8); LYMPHOCYTES % (AUTO) 14.2 % (20.0-44.0); MEAN CORPUSCULAR HGB CONC 34 g/dl (31.0-36.0); MEAN CORPUSCULAR VOLUME 90 fL (80-96); MONOCYTES # (AUTO) 1.5 K/uL (0.1-1.30); MONOCYTES % (AUTO) 15.9 % (2.0-12.0); NEUTROPHILS # (AUTO) 5.9 K/uL (1.8-8.9); NEUTROPHILS % (AUTO) 61.9 % (43.0-81.0); PLATELET COUNT (AUTO) 231 K/uL (150-450); WHITE BLOOD COUNT (AUTO) 9.6 K/uL (4.3-11.0)
[2021-08-21 07:09] LABS: CALCIUM, SERUM 8.8 mg/dL (8.5-10.1); CREATININE 0.8 mg/dL (0.6-1.3); MAGNESIUM 2.1 mg/dL (1.8-2.4); PHOSPHORUS 3.8 mg/dL (2.5-4.9); POTASSIUM 3.7 mmol/L (3.5-5.1)
--- NOTE | 2021-08-21 07:30 | NUR ---
RN OPENING NOTE RECEIVED PATIENT IN BED. A/O X1. CONFUSED. ON BILATERAL WRIST RESTRAINT. ON [facility] VENT PORTEX #9 WITH SETTINGS AC 10 TV 500 FIO2 40% PEEP 5%. FLEXISEAL, INTACT. POOLE CATHETER IN PLACE, DRAINING YELLOW URINE. GLUCERNA RUNNING AT 50 ML/HR. IV ACCESS ON RENEA MIDLINE, NS RUNNING AT 100 ML/HR, INTACT AND PATENT. SAFETY MEASURES MAINTAINED. BED IN LOWEST POSITION, BRAKES LOCKED. SIDE RAILS UP X2. CALL LIGHT WITHIN REACH. WILL CONTINUE PLAN OF CARE. Addendum: 08/21/21 at 1132 by MEAGHAN LINO RN CORRECTION: 10/02 NS RUNNING AT 100 ML/HR
[2021-08-21 08:56] LABS: EOSINOPHILS % (MANUAL) 7 % (0-4); LYMPHOCYTES % (MANUAL) 12 % (16-48); MONOCYTES % (MANUAL) 13 % (0-11.0); NEUTROPHILS % (MANUAL) 68 (42-76)
[2021-08-21] MEDS: PANTOPRAZOLE 40 MG/PACK PACK GT SCH ×2 (09:19→16:29)
[2021-08-21] MEDS: ASCORBIC ACID 500 MG TABLET GT SCH (09:19)
[2021-08-21] MEDS: LISINOPRIL (20MG) 20 MG TABLET GT SCH ×2 (09:19→21:24)
[2021-08-21] MEDS: DOCUSATE SODIUM LIQ 100 MG/10 ML UDC GT SCH ×2 (09:19→16:29)
[2021-08-21] MEDS: PROSOURCE / PROSTAT (PYXIS) 30 ML UDC GT SCH ×3 (09:20→16:29)
[2021-08-21] MEDS: MULTIVITAMINS,THERAGRAN 1 UDTAB TABLET GT SCH (09:20)
[2021-08-21] MEDS: CARVEDILOL 12.5 MG TABLET GT SCH ×2 (09:20→21:24)
[2021-08-21] MEDS: IV 1/2NS 1000 ML 1,000 ML IV PRN ×2 (11:38→23:54)
[2021-08-21] MEDS: LORAZEPAM INJ 2 MG/ML VIAL IV PRN (14:44)
[2021-08-21] MEDS: RIVAROXABAN 10 MG TABLET GT SCH (16:28)
--- NOTE | 2021-08-21 18:26 | NUR ---
RN CLOSING NOTE PATIENT IN BED. A/O X1. STILL ON BILATERAL SOFT WRIST RESTRAINT, ON [facility] VENT PORTEX #9 WITH SETTINGS AC 10 TV 500 FIO2 40% PEEP 5%. FLEXISEAL, INTACT. POOLE CATHETER IN PLACE, DRAINING YELLOW URINE, 1300 CC OUTPUT. GLUCERNA RUNNING AT 50 ML/HR, NO RESIDUAL. IV ACCESS ON RENEA MIDLINE, NS RUNNING AT 100 ML/HR, INTACT AND PATENT. DUE MEDS GIVEN ORDERED. SAFETY MEASURES MAINTAINED. BED IN LOWEST POSITION, BRAKES LOCKED. SIDE RAILS UP X2. KEPT CALL LIGHT WITHIN REACH. WILL ENDORSE CONTINUITY OF CARE TO ONCOMING SHIFT.
--- NOTE | 2021-08-21 19:33 | NUR ---
RN NOTES RECEIVED PATIENT IN BED, RESTLESS, ALERT/AWAKE, VENTILATOR DEPENDENT, SPO2 100%, NO RESPIRATORY DISTRESS. RENEA MIDLINE 1/2 NS AT 100 ML/HR, POOLE CATHETER DRAINING, FLEXI-SEAL, DIARRHEA, CDIFF POSITIVE, ENTERIC ISOLATION MAINTAINED, BILATERAL WRIST RESTRAINTS, PULLING OUT ALL LINES INCLUDING TRACH, POOLE, FLEXI-SEAL. KEPT SAFE, FOLLOWING RESTRAINTS MONITORING PROTOCOL.
--- NOTE | 2021-08-21 19:55 | NUR ---
RT NOTE PT RECEIVED TRACHED ON MECHANICAL VENTILATION. HHN TX GIVEN, NO ADVERSE REACTIONS NOTED. SX DONE, MODERATE THICK SECRETIONS NOTED. ALARMS ON AND AUDIBLE. VENT PLUGGED TO RED OUTLET. CONT. PULSE OX CONNECTED. WILL CONTINUE TO MONITOR. Addendum: 08/21/21 at 1956 by PRASANNA CALDERA RT Amended: Links added.
[2021-08-21 20:00] VITALS: BP 150/89
[2021-08-21 20:58] VITALS: BP 150/89
[2021-08-21] MEDS: ACETAMINOPHEN 325 MG TABLET PO PRN (21:23)
[2021-08-21] MEDS: DOXAZOSIN MESYLATE (1 MG) 1 MG TABLET GT SCH (21:23)
[2021-08-22] VITALS (7 sets, daily range): BP systolic 103–170; BP diastolic 56–83
[2021-08-22] MEDS: INSULIN REGULAR, HUMAN 100 UNIT/ML 3 ML VIAL SQ PRN ×4 (00:03→17:06)
[2021-08-22] MEDS: LORAZEPAM INJ 2 MG/ML VIAL IV PRN ×4 (00:13→21:45)
[2021-08-22] MEDS: GLUCERNA 1.2 1,000 ML BOTTLE GT PRN (01:42)
[2021-08-22] MEDS: IPRATROPIUM NEB FS 0.5 MG/2.5 ML AMPUL.NEB IH SCH ×5 (03:10→19:34)
[2021-08-22] MEDS: ALBUTEROL FS 2.5 MG/0.5 ML VIAL.NEB IH SCH ×5 (03:10→19:34)
[2021-08-22] MEDS: METRONIDAZOLE 500 MG TABLET PO SCH ×3 (04:28→21:34)
[2021-08-22] MEDS: BLOOD SUGAR DIAGNOSTIC 1 EACH STRIP IN SCH ×3 (05:15→17:06)
[2021-08-22] MEDS: VANCOMYCIN HCL 125 MG/2.5 ML ORAL.SUSP PO SCH ×3 (05:16→17:06)
--- NOTE | 2021-08-22 06:06 | NUR ---
VENTILATOR DEPENDENT, ALERT/AWAKE, OPEN EYES, NON-VERBAL, RESTLESS, SPO2 98%, NOT IN APPARENT PAIN, NO DISTRESS, ENTERIC ISOLATION MAINTAINED, CDIFF POSITIVE, BILATERAL WRIST RESTRAINTS, FOLLOWING RESTRAINTS MONITORING PROTOCOL, NO SKIN BREAKDOWN, BRISK CAPILLARY REFILL OF BUE, ACTIVELY PULLING IV LINES, POOLE CATHETER. FLEXI-SEAL DUE TO CDIFF, LIQUID AND MALODOROUS STOOL, PERINEAL, SCROTAL, BUTTOCKS MASD DUE TO DIARRHEA, IMPROVING, KEPT CLEAN, ZGUARD APPLIED. GLUCERNA AT 50 ML/HR, TOLERATING WELL, NO RESIDUAL NO ABDOMINAL DISTENTION, CONTINUE VANCOMYCIN IV AND VANCOCIN LIQUID.
[2021-08-22 07:01] LABS: BASOPHILS # (AUTO) 0.1 K/uL (0.0-0.2); BASOPHILS % (AUTO) 0.8 % (0.0-2.0); EOSINOPHILS % (AUTO) 7.8 % (0.0-6.0); HEMATOCRIT 28 % (39-51); HEMOGLOBIN 9.6 g/dL (13.5-17.5); LYMPHOCYTES # (AUTO) 1.2 K/uL (0.8-4.8); LYMPHOCYTES % (AUTO) 13.6 % (20.0-44.0); MEAN CORPUSCULAR HGB CONC 34 g/dl (31.0-36.0); MEAN CORPUSCULAR VOLUME 90 fL (80-96); MONOCYTES # (AUTO) 1.7 K/uL (0.1-1.30); MONOCYTES % (AUTO) 18.4 % (2.0-12.0); NEUTROPHILS # (AUTO) 5.4 K/uL (1.8-8.9); NEUTROPHILS % (AUTO) 59.4 % (43.0-81.0); PLATELET COUNT (AUTO) 256 K/uL (150-450); RED BLOOD CELL COUNT(AUTO) 3.12 MIL/uL (4.5-6.0)
--- NOTE | 2021-08-22 07:09 | NUR ---
FINAL INSPECTOR MOTORCYLES OPENING NOTE RECEIVED PATIENT IN BED. A/O X1. CONFUSED. ON BILATERAL WRIST RESTRAINT. ON [facility] VENT [place] #9 WITH SETTINGS AC 10 TV 500 FIO2 40% PEEP 5%. FLEXISEAL, INTACT. POOLE CATHETER IN PLACE, DRAINING YELLOW URINE. GLUCERNA RUNNING AT 50 ML/HR. IV ACCESS ON RENEA MIDLINE, 1/2 NS RUNNING AT 100 ML/HR, INTACT AND PATENT. SAFETY MEASURES MAINTAINED. BED IN LOWEST LOCKED POSITION, SIDE RAILS UP X2. CALL LIGHT AND TABLE WITHIN REACH. WILL CONTINUE PLAN OF CARE.
[2021-08-22 07:47] LABS: CALCIUM, SERUM 8.5 mg/dL (8.5-10.1); CREATININE 0.8 mg/dL (0.6-1.3); PHOSPHORUS 3.8 mg/dL (2.5-4.9); POTASSIUM 3.7 mmol/L (3.5-5.1)
[2021-08-22] MEDS: DOCUSATE SODIUM LIQ 100 MG/10 ML UDC GT SCH ×2 (08:28→16:07)
--- NOTE | 2021-08-22 08:29 | NUR ---
TELE/RN NOTES WITHHELD DOCUSATE SODIUM DUE TO LOOSE STOOLS X3. AWARE, OKAY TO HOLD
[2021-08-22] MEDS: CARVEDILOL 12.5 MG TABLET GT SCH ×2 (08:32→21:35)
[2021-08-22] MEDS: LISINOPRIL (20MG) 20 MG TABLET GT SCH ×2 (08:32→21:35)
[2021-08-22] MEDS: MULTIVITAMINS,THERAGRAN 1 UDTAB TABLET GT SCH (08:33)
[2021-08-22] MEDS: PROSOURCE / PROSTAT (PYXIS) 30 ML UDC GT SCH ×3 (08:33→16:22)
[2021-08-22] MEDS: ASCORBIC ACID 500 MG TABLET GT SCH (08:33)
[2021-08-22] MEDS: PANTOPRAZOLE 40 MG/PACK PACK GT SCH ×2 (08:33→16:22)
--- NOTE | 2021-08-22 08:39 | NUR ---
RN NOTE PT VISUALLY RESTLESS, PULLING AT LINES. GAVE PRN ATIVAN. VITALS WITHIN NORMAL LIMITS. WILL CONTINUE TO MONITOR.
[2021-08-22] MEDS: ACETAMINOPHEN 325 MG TABLET PO PRN (12:14)
[2021-08-22] MEDS: VANCOMYCIN HCL 0.75 GM in IV D5W 250 ML IV SCH ×2 (12:14→23:05)
[2021-08-22] MEDS: IV 1/2NS 1000 ML 1,000 ML IV PRN (12:26)
[2021-08-22] MEDS ORDERED: hydrALAZINE HCL IV 20 MG VIAL IV ONE (13:30)
[2021-08-22 14:09] LABS: EOSINOPHILS % (MANUAL) 12 % (0-4); LYMPHOCYTES % (MANUAL) 10 % (16-48); MONOCYTES % (MANUAL) 15 % (0-11.0); NEUTROPHILS % (MANUAL) 63 (42-76)
[2021-08-22] MEDS: RIVAROXABAN 10 MG TABLET GT SCH (16:23)
--- NOTE | 2021-08-22 18:15 | NUR ---
LICENSING AND REGISTRATION DIRECTOR CLOSING NOTES PATIENT IN BED. A/O X1. CONFUSED. ON BILATERAL WRIST RESTRAINT. ON EXTERNAL CONTINUOUS MINER OPERATOR READING ST HR 103. ON [facility] VENT [place] #9 WITH SETTINGS AC 10 TV 500 FIO2 40% PEEP 5%. FLEXISEAL, INTACT. POOLE CATHETER IN PLACE, DRAINING YELLOW URINE. GLUCERNA RUNNING AT 50 ML/HR. IV ACCESS ON RENEA MIDLINE, 1/2 NS RUNNING AT 100 ML/HR, INTACT AND PATENT. ALL NEEDS MET AT THIS TIME. SAFETY MEASURES MAINTAINED AT ALL TIMES. BED IN LOWEST LOCKED POSITION, SIDE RAILS UP X2. CALL LIGHT AND TABLE WITHIN REACH. WILL CONTINUE PLAN OF CARE.
--- NOTE | 2021-08-22 19:30 | NUR ---
PROFESSIONAL ARCHITECT OPENING NOTES PATIENT WAS SEEN AWAKE IN BED RESTING. PATIENT IS A/O X1. PT'S CONFUSED AND NON-VERBAL. ON BILATERAL SOFT WRIST RESTRAINTS. ON EXTERNAL LABORER SHOWING NO CARDIAC DISTRESS AT THIS TIME. ON [facility] VENT [place] #9 WITH SETTINGS AC=10, RV=786, FIO2 =40%, PEEP=5%, FLEXISEAL INTACT. POOLE CATHETER IN PLACE, DRAINING YELLOW URINE. GLUCERNA RUNNING AT 50 ML/HR. RENEA MIDLINE NOTED RUNNING 1/2 NS RUNNING AT 100 ML/HR. PATIENT'S IN NO ACUTE DISTRESS AT THIS TIME. SAFETY MEASURES IN PLACE. BED LOCKED, BED ALARM ON, SIDE RAILS UP X3, AND CALL LIGHT WITHIN REACH OF THE PATIENT. WILL CONTINUE TO MONITOR THE PATIENT.
[2021-08-22] MEDS: DOXAZOSIN MESYLATE (1 MG) 1 MG TABLET GT SCH (21:35)
[2021-08-23] VITALS: BP 156/78
--- NOTE | 2021-08-23 00:14 | NUR ---
SCHOOL PRINCIPAL NOTES PATIENT'S BLOOD SUGAR AT 0014 WAS 105MG/DL. WILL CONTINUE TO MONITOR THE PATIENT.
[2021-08-23] MEDS: BLOOD SUGAR DIAGNOSTIC 1 EACH STRIP IN SCH ×4 (00:17→17:03)
[2021-08-23] MEDS: GLUCERNA 1.2 1,000 ML BOTTLE GT PRN (00:21)
[2021-08-23] MEDS: ALBUTEROL FS 2.5 MG/0.5 ML VIAL.NEB IH SCH ×7 (00:29→23:12)
[2021-08-23] MEDS: IPRATROPIUM NEB FS 0.5 MG/2.5 ML AMPUL.NEB IH SCH ×7 (00:29→23:12)
[2021-08-23] MEDS: VANCOMYCIN HCL 125 MG/2.5 ML ORAL.SUSP PO SCH ×4 (00:38→17:03)
[2021-08-23] MEDS: LORAZEPAM INJ 2 MG/ML VIAL IV PRN ×5 (02:20→21:26)
--- NOTE | 2021-08-23 02:20 | NUR ---
GROUND WATER PUMP INSTALLER NOTES PATIENT'S CURRENT C/O ANXIETY. PATIENT WAS GIVEN 2MG OF ATIVAN IV AT THIS TIME. WILL CONTINUE TO MONITOR THE PATIENT.
[2021-08-23 04:00] VITALS: BP 138/76
[2021-08-23] MEDS: METRONIDAZOLE 500 MG TABLET PO SCH ×2 (04:59→12:13)
[2021-08-23] MEDS: IV 1/2NS 1000 ML 1,000 ML IV PRN (05:27)
--- NOTE | 2021-08-23 06:55 | NUR ---
ART EDITOR NOTES PATIENT'S BLOOD SUGAR AT THIS TIME WAS 116MG/DL. WILL CONTINUE TO MONITOR THE PATIENT.
[2021-08-23 07:18] LABS: CALCIUM, SERUM 8.5 mg/dL (8.5-10.1); CREATININE 0.8 mg/dL (0.6-1.3); MAGNESIUM 1.9 mg/dL (1.8-2.4); PHOSPHORUS 3.8 mg/dL (2.5-4.9); POTASSIUM 3.5 mmol/L (3.5-5.1)
--- NOTE | 2021-08-23 07:25 | NUR ---
SCREEN EXAMINER OPENING NOTE RECEIVED PATIENT IN BED. A/O X1. CONFUSED. ON BILATERAL WRIST RESTRAINT. ON [facility] VENT [place] #9 WITH SETTINGS AC 10 TV 500 FIO2 40% PEEP 5%. BREATHING EVENLY AND NONLABORED, FLEXISEAL, INTACT. POOLE CATHETER IN PLACE, DRAINING YELLOW URINE. GLUCERNA RUNNING AT 50 ML/HR. IV ACCESS ON RENEA MIDLINE, 1/2 NS RUNNING AT 100 ML/HR, INTACT AND PATENT. SAFETY MEASURES MAINTAINED. BED IN LOWEST LOCKED POSITION, SIDE RAILS UP X2. CALL LIGHT AND TABLE WITHIN REACH. WILL CONTINUE TO MONITOR
[2021-08-23 07:37] LABS: BASOPHILS # (AUTO) 0.1 K/uL (0.0-0.2); BASOPHILS % (AUTO) 0.7 % (0.0-2.0); HEMATOCRIT 29 % (39-51); HEMOGLOBIN 9.6 g/dL (13.5-17.5); LYMPHOCYTES # (AUTO) 1.3 K/uL (0.8-4.8); LYMPHOCYTES % (AUTO) 15.1 % (20.0-44.0); MEAN CORPUSCULAR HGB CONC 33 g/dl (31.0-36.0); MEAN CORPUSCULAR VOLUME 90 fL (80-96); MONOCYTES # (AUTO) 1.6 K/uL (0.1-1.30); MONOCYTES % (AUTO) 17.9 % (2.0-12.0); NEUTROPHILS # (AUTO) 5.2 K/uL (1.8-8.9); NEUTROPHILS % (AUTO) 58.3 % (43.0-81.0); PLATELET COUNT (AUTO) 259 K/uL (150-450); RED BLOOD CELL COUNT(AUTO) 3.21 MIL/uL (4.5-6.0); WHITE BLOOD COUNT (AUTO) 8.9 K/uL (4.3-11.0)
[2021-08-23] MEDS: DOCUSATE SODIUM LIQ 100 MG/10 ML UDC GT SCH ×2 (08:10→16:06)
--- NOTE | 2021-08-23 08:10 | NUR ---
TELE/RN NOTES WITHHELD DOCUSATE SODIUM DUE TO LOOSE STOOLS X3. AWARE, OKAY TO HOLD
[2021-08-23] MEDS: PANTOPRAZOLE 40 MG/PACK PACK GT SCH ×2 (08:32→16:55)
[2021-08-23] MEDS: MULTIVITAMINS,THERAGRAN 1 UDTAB TABLET GT SCH (08:33)
[2021-08-23] MEDS: ASCORBIC ACID 500 MG TABLET GT SCH (08:33)
[2021-08-23] MEDS: CARVEDILOL 12.5 MG TABLET GT SCH ×2 (08:34→21:18)
[2021-08-23] MEDS: LISINOPRIL (20MG) 20 MG TABLET GT SCH ×2 (08:34→21:05)
[2021-08-23] MEDS: PROSOURCE / PROSTAT (PYXIS) 30 ML UDC GT SCH ×3 (08:35→16:55)
[2021-08-23 08:40] VITALS: BP 162/87
[2021-08-23 10:35] LABS: EOSINOPHILS % (MANUAL) 7 % (0-4); LYMPHOCYTES % (MANUAL) 16 % (16-48); MONOCYTES % (MANUAL) 13 % (0-11.0); MYELOCYTES % 1 % (0-0); NEUTROPHILS % (MANUAL) 63 (42-76)
[2021-08-23] MEDS: VANCOMYCIN HCL 0.75 GM in IV D5W 250 ML IV SCH (11:16)
[2021-08-23] MEDS: INSULIN REGULAR, HUMAN 100 UNIT/ML 3 ML VIAL SQ PRN ×2 (11:28→17:49)
[2021-08-23 12:00] VITALS: BP 161/73
[2021-08-23 15:45] VITALS: BP 148/74
[2021-08-23] MEDS: RIVAROXABAN 10 MG TABLET GT SCH (16:55)
--- NOTE | 2021-08-23 18:26 | NUR ---
PURE CULTURE OPERATOR CLOSING NOTE PT A/OX1, CONFUSED, AND ON ISOLATION PRECAUTION. PT ON BILATERAL WRIST RESTRAINT. PT ON MECHANICAL VENT BREATHING EVENLY AND NONLABORED. POOLE CATHETER DRAINING CLEAR YELLOW URINE, FLEXSI SEAL INTACT. IV ACCESS PATENT AND INTACT ON RIGHT UPPER ARM MIDLINE. ALL MEDICATION ADMINISTERED ORDERED. WILL HAND OFF PT TO ONCOMING RN.
--- NOTE | 2021-08-23 19:30 | NUR ---
BELT MAKER HELPER OPENING NOTES PATIENT WAS SEEN AWAKE IN BED RESTING. PATIENT IS A/O X1. PT'S CONFUSED AND NON-VERBAL. ON BILATERAL SOFT WRIST RESTRAINTS. ON EXTERNAL SENIOR RADIATION THERAPIST SHOWING NO CARDIAC DISTRESS AT THIS TIME. ON [facility] VENT [place] #9 WITH SETTINGS AC=10, BN=330, FIO2 =40%, PEEP=5%, FLEXISEAL INTACT. POOLE CATHETER IN PLACE, DRAINING YELLOW URINE. GLUCERNA RUNNING AT 50 ML/HR. RENEA MIDLINE NOTED, WHICH IS INTACT, PATENT, AND FLUSHING WELL. PATIENT'S IN NO ACUTE DISTRESS AT THIS TIME. SAFETY MEASURES IN PLACE. BED LOCKED, BED ALARM ON, SIDE RAILS UP X3, AND CALL LIGHT WITHIN REACH OF THE PATIENT. WILL CONTINUE TO MONITOR THE PATIENT.
[2021-08-23 20:00] VITALS: BP 144/68
[2021-08-23] MEDS: DOXAZOSIN MESYLATE (1 MG) 1 MG TABLET GT SCH (21:18)
--- NOTE | 2021-08-23 21:26 | NUR ---
CLINICAL RADIOLOGIST NOTES PATIENT'S CURRENT C/O ANXIETY. PATIENT WAS GIVEN 2MG OF ATIVAN IV AT THIS TIME. WILL CONTINUE TO MONITOR THE PATIENT.
[2021-08-24] VITALS: BP 147/76
[2021-08-24] MEDS: VANCOMYCIN HCL 125 MG/2.5 ML ORAL.SUSP PO SCH ×4 (00:28→17:40)
--- NOTE | 2021-08-24 00:32 | NUR ---
COAL GASIFICATION TECHNICIAN NOTES PATIENT'S BLOOD SUGAR AT THIS TIME WAS 123MG/DL. WILL CONTINUE TO MONITOR THE PATIENT.
[2021-08-24] MEDS: BLOOD SUGAR DIAGNOSTIC 1 EACH STRIP IN SCH ×4 (00:38→17:22)
[2021-08-24] MEDS: LORAZEPAM INJ 2 MG/ML VIAL IV PRN ×3 (02:04→14:05)
--- NOTE | 2021-08-24 02:04 | NUR ---
MACHINERY ENGINEER NOTES PATIENT'S CURRENT C/O ANXIETY. PATIENT WAS GIVEN 2MG OF ATIVAN IV AT THIS TIME. WILL CONTINUE TO MONITOR THE PATIENT.
[2021-08-24 04:00] VITALS: BP 163/74
[2021-08-24] MEDS: IPRATROPIUM NEB FS 0.5 MG/2.5 ML AMPUL.NEB IH SCH ×6 (04:14→23:31)
[2021-08-24] MEDS: ALBUTEROL FS 2.5 MG/0.5 ML VIAL.NEB IH SCH ×6 (04:14→23:31)
--- NOTE | 2021-08-24 05:30 | NUR ---
WEB CONTENT PRODUCER NOTES PATIENT'S BLOOD SUGAR AT THIS TIME WAS 127MG/DL. WILL CONTINUE TO MONITOR THE PATIENT.
--- NOTE | 2021-08-24 06:38 | NUR ---
FOREIGN FOOD SPECIALTY COOK CLOSING NOTES PATIENT WAS SEEN SLEEPING IN BED. PATIENT IS A/O X1. PT'S CONFUSED AND NON-VERBAL. ON BILATERAL SOFT WRIST RESTRAINTS. ON EXTERNAL FEED MILL SUPERVISOR SHOWING SINUS RHYTHM WITH BBBs. ON [facility] VENT [place] #9 WITH SETTINGS AC=10, UT=629, FIO2 =40%, PEEP=5%, FLEXISEAL INTACT. POOLE CATHETER IN PLACE, DRAINING DUSTY URINE WITH AN OUTPUT OF 900CC. GLUCERNA RUNNING AT 50 ML/HR. RENEA MIDLINE NOTED, WHICH IS INTACT, PATENT, AND FLUSHING WELL. PATIENT'S IN NO ACUTE DISTRESS AT THIS TIME. SAFETY MEASURES IN PLACE. BED LOCKED, BED ALARM ON, SIDE RAILS UP X3, AND CALL LIGHT WITHIN REACH OF THE PATIENT. WILL ENDORSE CARE TO THE DAY SHIFT NURSE.
[2021-08-24 06:57] LABS: CALCIUM, SERUM 8.8 mg/dL (8.5-10.1); CREATININE 0.8 mg/dL (0.6-1.3); POTASSIUM 3.8 mmol/L (3.5-5.1)
--- NOTE | 2021-08-24 07:30 | NUR ---
BRANCH MAKER OPENING NOTES RECEIVED PATIENT AWAKE IN BED RESTING. PATIENT IS A/O X1. PATIENT IS CONFUSED AND NON-VERBAL. ON BILATERAL SOFT WRIST RESTRAINTS. ON EXTERNAL CREDIT ASSISTANT SHOWING NO CARDIAC DISTRESS AT THIS TIME READING OF SR 94. ON [facility] VENT [place] #9 WITH SETTINGS AC=10, ZG=674, FIO2 =40%, PEEP=5%, FLEXISEAL INTACT. POOLE CATHETER IN PLACE, DRAINING YELLOW URINE. GLUCERNA RUNNING AT 50 ML/HR. RENEA MIDLINE NOTED INTACT, PATENT, AND FLUSHING WELL. PATIENT'S IN NO ACUTE DISTRESS AT THIS TIME. SAFETY MEASURES IN PLACE. BED LOCKED, BED ALARM ON, SIDE RAILS UP X3,WILL CONTINUE TO MONITOR.
[2021-08-24 08:00] VITALS: BP 180/90
[2021-08-24] MEDS: PANTOPRAZOLE 40 MG/PACK PACK GT SCH ×2 (09:25→16:52)
[2021-08-24] MEDS: DOCUSATE SODIUM LIQ 100 MG/10 ML UDC GT SCH ×2 (09:29→16:52)
[2021-08-24] MEDS: ASCORBIC ACID 500 MG TABLET GT SCH (09:29)
[2021-08-24] MEDS: LISINOPRIL (20MG) 20 MG TABLET GT SCH ×2 (09:30→22:52)
[2021-08-24] MEDS: CARVEDILOL 12.5 MG TABLET GT SCH ×2 (09:33→22:53)
[2021-08-24] MEDS: MULTIVITAMINS,THERAGRAN 1 UDTAB TABLET GT SCH (09:33)
[2021-08-24] MEDS: PROSOURCE / PROSTAT (PYXIS) 30 ML UDC GT SCH ×3 (09:35→16:52)
[2021-08-24 12:00] VITALS: BP 131/80
[2021-08-24] MEDS: INSULIN REGULAR, HUMAN 100 UNIT/ML 3 ML VIAL SQ PRN (12:13)
[2021-08-24 16:00] VITALS: BP 146/81
[2021-08-24] MEDS: RIVAROXABAN 10 MG TABLET GT SCH (16:53)
--- NOTE | 2021-08-24 18:30 | NUR ---
GIS SPECIALIST CLOSING NOTES: PATIENT SLEEPING IN BED . PATIENT IS A/O X1. PATIENT IS CONFUSED AND NON-VERBAL. ON BILATERAL SOFT WRIST RESTRAINTS ON .EXTERNAL FLEET MAINTENANCE FOREMAN SHOWING NO CARDIAC DISTRESS AT THIS TIME READING OF SR 86. ON [facility] VENT [place] #9 WITH SETTINGS AC=10, JI=858, FIO2 =40%, PEEP=5%, FLEXISEAL INTACT. POOLE CATHETER IN PLACE, DRAINING YELLOW URINE. GLUCERNA RUNNING AT 50 ML/HR. RENEA MIDLINE NOTED INTACT, PATENT, AND FLUSHING WELL. NO ACUTE DISTRESS AT THIS TIME.ALL DUE MEDS AND TREATMENTS GIVEN ORDERED. SAFETY MEASURES IN PLACE. BED LOCKED IN LOWEST POSITION. BED ALARM ON, SIDE RAILS UP X3,WILL ENDORSE ONCOMING SHIFT FOR COY..
--- NOTE | 2021-08-24 19:35 | NUR ---
RN NOTES Received patient a/ox1, non-verbal, fritz dependent, SR with BBB on tele monitor HR83, F/C draining clear yellow urine, flexiseal in place, G-tube feeding running at 50ml/hr, not in distress , no pain noted, bed in locked position, noticed patient on bilateral soft wrist restraints, checked circulation, siderailsupx2, will continue to monitor
--- NOTE | 2021-08-24 20:00 | NUR ---
RN NOTES PATIENT PULLED OUT HIS FLEXI SEAL, NAD WAS FIGHTING WITH US WHEN WERE TRYING TO INSERT A NEW ONE
[2021-08-24] MEDS: DOXAZOSIN MESYLATE (1 MG) 1 MG TABLET GT SCH (22:52)
[2021-08-25] MEDS: BLOOD SUGAR DIAGNOSTIC 1 EACH STRIP IN SCH ×5 (00:25→23:11)
[2021-08-25] MEDS: VANCOMYCIN HCL 125 MG/2.5 ML ORAL.SUSP PO SCH ×5 (00:31→23:11)
[2021-08-25] MEDS: IPRATROPIUM NEB FS 0.5 MG/2.5 ML AMPUL.NEB IH SCH ×6 (03:45→23:33)
[2021-08-25] MEDS: ALBUTEROL FS 2.5 MG/0.5 ML VIAL.NEB IH SCH ×6 (03:45→23:33)
--- NOTE | 2021-08-25 06:20 | NUR ---
RN NOTES AWAKE, NOT IN DISTRESS, NO PAIN NOTED, MORNING CARE RENDERED, [id number], PT. NEEDS ATTENDED
[2021-08-25 06:22] LABS: BASOPHILS # (AUTO) 0.1 K/uL (0.0-0.2); BASOPHILS % (AUTO) 0.7 % (0.0-2.0); EOSINOPHILS % (AUTO) 6.6 % (0.0-6.0); HEMATOCRIT 29 % (39-51); HEMOGLOBIN 9.9 g/dL (13.5-17.5); LYMPHOCYTES # (AUTO) 1.6 K/uL (0.8-4.8); LYMPHOCYTES % (AUTO) 17.7 % (20.0-44.0); MEAN CORPUSCULAR HGB CONC 34 g/dl (31.0-36.0); MEAN CORPUSCULAR VOLUME 91 fL (80-96); MONOCYTES % (AUTO) 11.3 % (2.0-12.0); NEUTROPHILS # (AUTO) 5.8 K/uL (1.8-8.9); NEUTROPHILS % (AUTO) 63.7 % (43.0-81.0); PLATELET COUNT (AUTO) 328 K/uL (150-450); RED BLOOD CELL COUNT(AUTO) 3.24 MIL/uL (4.5-6.0); WHITE BLOOD COUNT (AUTO) 9.1 K/uL (4.3-11.0)
[2021-08-25 06:38] LABS: CALCIUM, SERUM 8.6 mg/dL (8.5-10.1); CREATININE 0.8 mg/dL (0.6-1.3); MAGNESIUM 2.1 mg/dL (1.8-2.4); PHOSPHORUS 4.3 mg/dL (2.5-4.9); POTASSIUM 4.2 mmol/L (3.5-5.1)
--- NOTE | 2021-08-25 07:31 | NUR ---
MEDIA MARKETING SPECIALIST OPENING NOTES RECEIVED PATIENT AWAKE IN BED RESTING. PATIENT IS A/O X1, NON-VERBAL. ON BILATERAL SOFT WRIST RESTRAINTS. ON EXTERNAL FRAME OPENER SHOWING NO CARDIAC DISTRESS AT THIS TIME READING OF SR 99 WITH BBB. ON [facility] VENT [place] #9 WITH SETTINGS AC=10, PF=711, FIO2 =40%, PEEP=5%, POOLE CATHETER IN PLACE, DRAINING YELLOW URINE. GLUCERNA RUNNING AT 50 ML/HR. RENEA MIDLINE NOTED INTACT, PATENT, AND FLUSHING WELL. PATIENT'S IN NO ACUTE DISTRESS AT THIS TIME. SAFETY MEASURES IN PLACE. BED LOCKED, BED ALARM ON, SIDE RAILS UP X3,WILL CONTINUE TO MONITOR ACCORDINGLY.
[2021-08-25 08:00] VITALS: BP 142/75
[2021-08-25] MEDS: LORAZEPAM INJ 2 MG/ML VIAL IV PRN (08:00)
[2021-08-25] MEDS: DOCUSATE SODIUM LIQ 100 MG/10 ML UDC GT SCH ×2 (08:36→16:13)
[2021-08-25] MEDS: ASCORBIC ACID 500 MG TABLET GT SCH (08:36)
[2021-08-25] MEDS: PANTOPRAZOLE 40 MG/PACK PACK GT SCH ×2 (08:36→16:14)
[2021-08-25] MEDS: MULTIVITAMINS,THERAGRAN 1 UDTAB TABLET GT SCH (08:37)
[2021-08-25] MEDS: PROSOURCE / PROSTAT (PYXIS) 30 ML UDC GT SCH ×3 (08:51→16:16)
[2021-08-25] MEDS: LISINOPRIL (20MG) 20 MG TABLET GT SCH ×2 (08:57→21:17)
[2021-08-25] MEDS: CARVEDILOL 12.5 MG TABLET GT SCH ×2 (08:57→21:17)
[2021-08-25] MEDS: GLUCERNA 1.2 1,000 ML BOTTLE GT PRN (09:05)
--- NOTE | 2021-08-25 11:01 | NUR ---
RN NOTES BLOOD SUGAR CHEKCED, 121 MG/DL, NO INSULIN COVERAGE NEEDED.
[2021-08-25 16:00] VITALS: BP 155/88
[2021-08-25] MEDS: RIVAROXABAN 10 MG TABLET GT SCH (16:14)
--- NOTE | 2021-08-25 18:00 | NUR ---
RN NOTES BLOOD SUGAR CHECKED, RESULT 100, NO INSULIN COVERAGE NEEDED.
--- NOTE | 2021-08-25 18:33 | NUR ---
PRINT MANAGER CLOSING NOTES PATIENT IN BED RESTING. PATIENT IS A/O X1, NON-VERBAL. ON BILATERAL SOFT WRIST RESTRAINTS. ON EXTERNAL SIDE GLUER SHOWING NO CARDIAC DISTRESS AT THIS TIME READING OF SR 93 WITH BBB. ON [facility] VENT [place] #9 WITH SETTINGS AC=10, BQ=693, FIO2 =40%, PEEP=5%, POOLE CATHETER IN PLACE, DRAINING YELLOW URINE. GLUCERNA RUNNING AT 50 ML/HR. RENEA MIDLINE NOTED INTACT, PATENT, AND FLUSHING WELL. PATIENT'S IN NO ACUTE DISTRESS AT THIS TIME. SAFETY MEASURES IN PLACE. BED LOCKED, BED ALARM ON, SIDE RAILS UP X3. ALL NEEDS ATTENDED AND MET, DUE MEDS GIVEN ORDERED. WILL ENDORSE TO ONCOMING SHIFT FOR COY.
--- NOTE | 2021-08-25 19:35 | NUR ---
RN NOTES RECEIVED PATIENT AWAKE, VENT DEPENDENT, ST ON TELE MONITOR HR-103, F/C DRAINING YELLOW BLOOD STREAKED URINE, ON BILATERAL SOFT WRIST RESTRAINTS, CIRCULATION ON BILATERAL EXTREMITIES WAS CHECKED, NOT IN DISTRESS, NO PAIN NOTED, SIDERAILUPX2, WILL CONTINUE TO MONITOR
[2021-08-25 20:00] VITALS: BP 157/68
[2021-08-25] MEDS: DOXAZOSIN MESYLATE (1 MG) 1 MG TABLET GT SCH (21:17)
[2021-08-26] VITALS: BP 148/70
[2021-08-26] MEDS: IPRATROPIUM NEB FS 0.5 MG/2.5 ML AMPUL.NEB IH SCH ×3 (02:56→11:01)
[2021-08-26] MEDS: ALBUTEROL FS 2.5 MG/0.5 ML VIAL.NEB IH SCH ×3 (02:56→11:01)
[2021-08-26 04:00] VITALS: BP 156/80
[2021-08-26] MEDS: VANCOMYCIN HCL 125 MG/2.5 ML ORAL.SUSP PO SCH ×2 (05:50→12:22)
[2021-08-26] MEDS: BLOOD SUGAR DIAGNOSTIC 1 EACH STRIP IN SCH ×2 (06:05→12:02)
--- NOTE | 2021-08-26 06:14 | NUR ---
RN NOTES AWAKE, MORNING CARE RENDERED, NOT IN DISTRESS, PT. NEEDS ATTENDED
[2021-08-26 06:58] LABS: CALCIUM, SERUM 8.8 mg/dL (8.5-10.1); CREATININE 0.8 mg/dL (0.6-1.3); MAGNESIUM 2.3 mg/dL (1.8-2.4); PHOSPHORUS 4.1 mg/dL (2.5-4.9); POTASSIUM 4.2 mmol/L (3.5-5.1)
[2021-08-26 06:59] LABS: BASOPHILS # (AUTO) 0.1 K/uL (0.0-0.2); BASOPHILS % (AUTO) 0.8 % (0.0-2.0); EOSINOPHILS % (AUTO) 5.6 % (0.0-6.0); HEMATOCRIT 31 % (39-51); HEMOGLOBIN 10.6 g/dL (13.5-17.5); LYMPHOCYTES # (AUTO) 1.5 K/uL (0.8-4.8); LYMPHOCYTES % (AUTO) 14.8 % (20.0-44.0); MEAN CORPUSCULAR HGB CONC 34 g/dl (31.0-36.0); MEAN CORPUSCULAR VOLUME 89 fL (80-96); MONOCYTES # (AUTO) 1.1 K/uL (0.1-1.30); MONOCYTES % (AUTO) 10.6 % (2.0-12.0); NEUTROPHILS % (AUTO) 68.2 % (43.0-81.0); PLATELET COUNT (AUTO) 376 K/uL (150-450); WHITE BLOOD COUNT (AUTO) 10.3 K/uL (4.3-11.0)
--- NOTE | 2021-08-26 07:45 | NUR ---
RN OPENING NOTE- PATIENT AWAKE IN BED RESTING. PATIENT IS A/O X1, NON-VERBAL. ON BILATERAL SOFT WRIST RESTRAINTS. ON EXTERNAL ELECTROMEDICAL EQUIPMENT REPAIRER SHOWING NO CARDIAC DISTRESS AT THIS TIME READING OF SR 92. ON [facility] VENT [place] #9 WITH SETTINGS AC=10, CJ=420, FIO2 =40%, PEEP=5%, POOLE CATHETER IN PLACE, DRAINING CLEAR YELLOW URINE. GLUCERNA RUNNING AT 50 ML/HR. RENEA MIDLINE NOTED INTACT, PATENT, AND FLUSHING WELL. PATIENT'S IN NO ACUTE DISTRESS AT THIS TIME. SAFETY MEASURES IN PLACE. BED LOCKED, BED ALARM ON, SIDE RAILS UP X3,WILL CONTINUE TO MONITOR AND ASSIST.
[2021-08-26 08:00] VITALS: BP 157/93
[2021-08-26] MEDS: LISINOPRIL (20MG) 20 MG TABLET GT SCH (08:46)
[2021-08-26] MEDS: DOCUSATE SODIUM LIQ 100 MG/10 ML UDC GT SCH (08:47)
[2021-08-26] MEDS: MULTIVITAMINS,THERAGRAN 1 UDTAB TABLET GT SCH (08:47)
[2021-08-26] MEDS: CARVEDILOL 12.5 MG TABLET GT SCH (08:47)
[2021-08-26] MEDS: PANTOPRAZOLE 40 MG/PACK PACK GT SCH (08:48)
[2021-08-26] MEDS: ASCORBIC ACID 500 MG TABLET GT SCH (08:48)
[2021-08-26] MEDS: PROSOURCE / PROSTAT (PYXIS) 30 ML UDC GT SCH ×2 (08:54→12:25)
[2021-08-26] MEDS: NIFEdipine (10MG) 10 MG CAPSULE PO SCH ×2 (08:56→12:24)
[2021-08-26 12:24] VITALS: BP 148/86
[2021-08-26] MEDS ORDERED: NIFE10CA2 PO (13:39)
[2021-08-26] MEDS ORDERED: VANC125C11 PO (13:39)
--- NOTE | 2021-08-26 14:00 | NUR ---
MATERIAL DAMAGE ADJUSTER NOTE- PT DC AT THIS TIME TO FACILITY. VIA AMBULANCE W RT AT BEDSIDE. VENT SETTINGS REMAIN THE SAME, PT VS STABLE, WOUND CARE COMPLETED AND PHOTOS TAKEN FOR CHART. DC ORDERS RECEIVED AND REVIEWED W STAFF AT FACILITY AND AMBULANCE STAFF. MIDLINE REMAINS TO RENEA, POOLE CATHETER DRAINING YELLOW UA PT STABLE AND SENT TO FACILITY.
== END 2021-08-26 13:45 | DRG 870 ==
LOC: ER 22:35 → TELE1 08-14 08:56 → ICU 08-15 12:49 → TELE 08-17 19:45
PROVIDERS: ADMIT Internal Medicine; ATTEND Nurse Practitioner Acute Care
PROC: 5A1955Z Respiratory Ventilation, Greater than 96 Consecutive Hours (ICD-10-PCS; principal; 2021-08-13)
PROC: 05H533Z Insertion of Infusion Device into Right Subclavian Vein, Percutaneous Approach (ICD-10-PCS; 2021-08-19)
PROC: B546ZZA Ultrasonography of Right Subclavian Vein, Guidance (ICD-10-PCS; 2021-08-19)
DX: A41.9 Sepsis, unspecified organism (principal); G93.41 Metabolic encephalopathy; N17.0 Acute kidney failure with tubular necrosis; J69.0 Pneumonitis due to inhalation of food and vomit; J96.21 Acute and chronic respiratory failure with hypoxia; R53.2 Functional quadriplegia; E87.1 Hypo-osmolality and hyponatremia; L03.115 Cellulitis of right lower limb; Z99.11 Dependence on respirator [ventilator] status; A04.72 Enterocolitis due to Clostridium difficile, not specified as recurrent; T81.41XA Infection following a procedure, superficial incisional surgical site, initial encounter; D63.8 Anemia in other chronic diseases classified elsewhere; I25.10 Atherosclerotic heart disease of native coronary artery without angina pectoris; Z20.822 Contact with and (suspected) exposure to COVID-19; Z93.0 Tracheostomy status; E87.5 Hyperkalemia; I10 Essential (primary) hypertension; Z93.1 Gastrostomy status; Z95.1 Presence of aortocoronary bypass graft; E11.40 Type 2 diabetes mellitus with diabetic neuropathy, unspecified; E83.42 Hypomagnesemia; E87.6 Hypokalemia; I48.91 Unspecified atrial fibrillation; M20.42 Other hammer toe(s) (acquired), left foot; M20.41 Other hammer toe(s) (acquired), right foot; R13.10 Dysphagia, unspecified; N50.89 Other specified disorders of the male genital organs; Z87.820 Personal history of traumatic brain injury; F41.9 Anxiety disorder, unspecified; E11.621 Type 2 diabetes mellitus with foot ulcer; L97.519 Non-pressure chronic ulcer of other part of right foot with unspecified severity; K52.9 Noninfective gastroenteritis and colitis, unspecified; Y83.8 Other surgical procedures as the cause of abnormal reaction of the patient, or of later complication, without mention of misadventure at the time of the procedure; Y92.89 Other specified places as the place of occurrence of the external cause; S00.03XA Contusion of scalp, initial encounter
CPT/HCPCS: 31720; 36410; 36415; 36600; 70450-TC; 71045-TC; 80048-TC; 80053-TC; 80076-TC; 80202-TC; 81001; 82728-TC; 82803-TC; 82962-TC; 83540-TC; 83605-TC; 83735-TC; 83880; 84100-TC; 84132-TC; 84484-TC; 85025-TC; 85730-TC; 87040-TC; 87045-TC; 87081-TC; 87086-TC; 87177; 87209; 93307-TC; 94002-TC; 94003-TC; 94760-TC; 94762-TC; 94799-TC; 99082-TC; A4217; C9803; G0378; J0360; J0692; J1815; J1940; J2060; J2185; J2248; J3370; J3475; J3480; J3490; J7030; J7050; J7060; U0003